=== PATIENT | female | born 1955 | race Caucasian/White ===

== ENCOUNTER 2025-01-31 16:46 | Emergency (ER) | payer MEDICARE, OTHER, SELFPAY ==
[2025-01-31] VITALS (7 sets, daily range): BP systolic 118–148; BP diastolic 65–83; PULSE 60–74; RESP 15–18; TEMP 36.6–36.8; O2SAT 93–100; BMI 46.4
--- NOTE | 2025-01-31 16:56 | ECG_ITS ---
Test Reason : syncope Blood Pressure : */* mmHG Vent. Rate : 58 BPM Atrial Rate : 58 BPM P-R Int : 196 ms QRS Dur : 92 ms QT Int : 456 ms P-R-T Axes : 31 -7 57 degrees QTcB Int : 447 ms Sinus bradycardia Cannot rule out Anterior infarct , age undetermined Abnormal ECG No previous ECGs available Referred By: Generic ED Physician Electronically Signed By: MARIELA SUMNER MD
[2025-01-31 17:18] LABS: MANUAL DIFF FLAG NO
[2025-01-31 17:18] LABS: Glucose, Whole Blood 137 mg/dL (60-115)
[2025-01-31 17:20] LABS: Hematocrit 40.6 % (37.0-47.0); Hemoglobin 13.6 g/dl (12.0-16.0); Imm Gran Abs Auto 0.04 X10*3/uL (0.00-0.03); Imm Gran Pct Auto 0.3 % (0.0-0.4); Lymphocytes Absolute Auto 3.2 X10*3/uL (1.2-4.9); Mean Corpuscular HGB Conc 33.5 g/dl (31.0-35.0); Mean Corpuscular Hemoglobin 29.3 pg (27.0-33.0); Mean Corpuscular Volume 87.5 fL (80.0-98.0); NRBC Abs Auto 0.000 X10*3/uL (0.0-0.012); NRBC Pct Auto 0.0 /100WBC (0.0-0.2); Platelet Count 243 X10*3/uL (160-400); Red Blood Count 4.64 X10*6/uL (4.20-5.50); White Blood Count 11.5 X10*3/uL (4.8-10.8)
--- NOTE | 2025-01-31 17:28 | ED.SYNCOPE ---
HPI - Syncope General Chief Complaint: Syncope Stated Complaint: Sycopal episode, +loc, - head strike Time Seen by Provider: 01/31/25 17:21 Source: patient and EMS Mode of arrival: EMS Limitations: no limitations History of Present Illness ED Provider: HPI narrative: 77-year-old woman with history of syncope in the past, was waiting outside for 45 minutes the store and a cold when she went into the warm space she said down and had a syncopal episode for minute no loss of bowel or bladder function, no seizures, she states that has had episodes of syncope and reaction to heat in the past, no chest pain or shortness of breath or palpitations prior to the event. Related Data Allergies Allergy/AdvReac Type Severity Reaction Status Date / Time No Known Allergies Allergy Verified 01/31/25 17:04 Physical Exam Exam: Exam: ?General: ??looks age appropriate no head trauma, ?PERRLA, EOMI, dry oral mucosa Neck: Supple, no LAD ?CV: RRR, no obvious murmurs appreciated ?Resp: ?No wheezing rales rhonchi no stridor moving air well Abd: ?Bowel sounds are present, no tenderness no rebound no rigidity MSK: FROM, strength 5/5 all extremities Skin: Warm, dry, intact, ?Neuro: ?Alert and oriented x3, moving upper and lower extremities symmetrically, no obvious facial asymmetry noted, cranial nerves 2-12 intact Vital Signs: Vital Signs: Last Vital Signs Temp 98 F 01/31/25 16:58 Pulse 64 01/31/25 16:58 Resp 18 01/31/25 16:58 BP 118/65 01/31/25 16:58 Pulse Ox 93 01/31/25 16:58 O2 Del Method Room Air 01/31/25 16:58 BMI result Body Mass Index 46.4 Medical Decision Making Medical Decision Making [facility] Narrative: 5:49 PM 01/31/2025 (Dr. Camacho Simental): Well-appearing, no trauma, no presyncopal events to suspect dysrhythmia, ACS, subarachnoid hemorrhage prior to syncope she has had syncopal episodes in the past, we will check cardiac enzymes, blood work for anemia, dehydration, electrolyte derangements, orthostatics anticipating discharge otherwise Differential Diagnosis Differential Diagnoses: The differential diagnosis associated with the presentation includes (ACS, PE, dysrhythmia, anemia, cardiac tamponade, AAA rupture, vasovagal syncope, orthostatic syncope, medication induced syncope) Lab Data MDM Lab Attestation statement: I reviewed the patient's lab results. 01/31/25 17:13 01/31/25 17:13 Labs: Lab Results 01/31/25 01/31/25 Range/Units 17:08 17:13 WBC 11.5 H (4.8-10.8) X10*3/uL RBC 4.64 (4.20-5.50) X10*6/uL Hgb 13.6 (12.0-16.0) g/dl Hct 40.6 (37.0-47.0) % MCV 87.5 (80.0-98.0) fL MCH 29.3 (27.0-33.0) pg MCHC 33.5 (31.0-35.0) g/dl RDW 12.9 (11.0-16.0) % Plt Count 243 (160-400) X10*3/uL MPV 11.0 (9.4-12.3) fL Immature Gran % (Auto) 0.3 (0.0-0.4) % Neut % (Auto) 65.4 (45-73) % Lymph % (Auto) 27.5 (20-40) % Churchill % (Auto) 5.5 (2-11) % Eos % (Auto) 1.0 (0-4) % Baso % (Auto) 0.3 (0-2) % Lymph # (Auto) 3.2 (1.2-4.9) X10*3/uL Churchill # (Auto) 0.6 (0.1-1.2) X10*3/uL Eos # (Auto) 0.1 (0.0-0.4) X10*3/uL Baso # (Auto) 0.0 (0.0-0.2) X10*3/uL Abs Immat Gran (auto) 0.04 H (0.00-0.03) X10*3/uL Absolute Neuts (auto) 7.5 (2.0-8.3) x10*3/uL Absolute Nucleated RBC 0.000 (0.0-0.012) X10*3/uL Nucleated RBC % (auto) 0.0 (0.0-0.2) /100WBC POC Glucose 137 H (60-115) mg/dL Independent Interpretation I performed an independent interpretation of an: EKG (58 beats per minute otherwise normal ECG without dysrhythmia, AV hamlet blocks or ST-T changes to suspect underlying ACS, my independent interpretation) Chronic Conditions Patient?s care impacted by: Hypertension Discharge Plan Discharge Clinical Impression: Vasovagal syncope Instructions: Syncope (ED) Additional Instructions: Make sure to stay well hydrated, follow up with the PCP, your physical exam, vital signs, workup included EKG cardiac enzymes reassuring Any other issues or concerns come back to the ER for re-evaluation
[2025-01-31 17:45] LABS: Alanine Aminotransferase 22 U/L (0-31); Albumin Level 4.1 g/dL (3.5-5.0); Alkaline Phosphatase 95 U/L (39-117); Anion Gap 12 (12-20); Aspartate Amino Transferase 24 U/L (5-31); Blood Urea Nitrogen 17 mg/dL (9-16); Calcium 8.8 mg/dL (8.4-10.2); Carbon Dioxide 28 mmol/L (22-29); Chloride 104 mmol/L (96-108); Creatinine Clr Calc Pharmacy 91.7; Estimated Glomerular Filt Rate > 60; Magnesium 1.6 mg/dL (1.6-2.6); Potassium 3.5 mmol/L (3.3-5.1); Sodium 140 mmol/L (135-145); Total Protein 7.0 g/dL (6.5-8.0)
[2025-01-31 17:54] LABS: Troponin-I High Sensitivity < 2.7 ng/L (<3.5-17.0)
--- NOTE | 2025-01-31 18:27 | PC.NURSE ---
Pt coming in reporting that she had a 1 minute syncopal episode pt reporting she was standing outside for 1+ hour, then went into a warm room and thinks that's what might have caused it. Pt noted that she has been nauseous but no other symptoms of SOB/CP/v/d. Pt noted while walking to the bathroom with this RN that she did not have any dizziness/or lightheadedness. IV placed IVF infusing, orthostatics completed and negative. Pt reporting she did eat both breakfast and some small lunch today. Call mccann within reach, awaiting further dispo at this time.
--- OUTSIDE RECORDS SUMMARY | 2025-02-01 02:24 | XMS_ITS | Clinical Summary ---
Author Organization [facility] Prior to 07/24/24 Address [address] [place] [address] Care Team Providers Care Powertrain Control Systems Engineer Name Role Phone Sofia Sims MD Primary Care Provider [phone] Allergies No known active allergies Medications Medication Sig Dispensed Refills Start Date End Date Status vitamin C (ASCORBIC ACID) 500 MG tablet Take 500 mg by mouth. 0 Active Cholecalciferol (VITAMIN D3) 25 MCG (1000 UT) CAPS Take 1 each by mouth. 0 Active gabapentin (NEURONTIN) 300 MG capsule TAKE 1 CAPSULE BY MOUTH EVERYDAY AT BEDTIME 0 11/03/2019 Active indapamide (LOZOL) 2.5 MG tablet TAKE 1 TABLET BY MOUTH EVERY DAY IN THE MORNING 0 11/02/2019 Active losartan (COZAAR) 100 MG tablet Take 100 mg by mouth daily. 0 11/02/2019 Active traMADol (ULTRAM) 50 MG tablet TK 1 T PO D 0 01/03/2020 Active albuterol 108 (90 Base) MCG/ACT inhaler Inhale 2 puffs into the lungs. 0 06/26/2020 Active fluticasone (FLONASE) 50 MCG/ACT nasal spray USE 1 PUFF INTO EACH NOSTRIL EVERY DAY 0 03/02/2021 Active ibuprofen 800 MG tablet Take 800 mg by mouth every 8 (eight) hours as needed. for pain 0 02/03/2021 Active indomethacin (INDOCIN) 50 MG capsule Take 50 mg by mouth. 0 04/15/2017 Active atorvastatin (LIPITOR) tablet 10 mg Take 1 tablet (10 mg total) by mouth every night at bedtime. 0 06/05/2021 Active LORazepam (ATIVAN) 1 MG tablet 0 01/30/2022 Active pregabalin (LYRICA) capsule 150 mg 0 01/30/2022 Active indapamide (LOZOL) 2.5 MG tablet Take 1 tablet (2.5 mg total) by mouth every night at bedtime. 0 06/20/2021 Active Active Problems Problem Noted Date Diagnosed Date Arthritis of knee, left 01/31/2022 Arthritis of knee, left 01/11/2020 Family History Medical History Relation Name Comments Hypertension Father Relation Name Status Comments Father Social History Tobacco Use Types Packs/Day Years Used Date Smoking Tobacco: Never Assessed Sex and Gender Information Value Date Recorded Sex Assigned at Not on file Gender Identity Not on file Sexual Orientation Not on file Job Start Date Occupation Industry Not on file Not on file Not on file Last Filed Vital Signs Vital Sign Reading Time Taken Comments Blood Pressure - - Pulse - - Temperature - - Respiratory Rate - - Oxygen Saturation - - Inhaled Oxygen Concentration - - Weight 108 kg (238 lb) 11/14/2020 11:13 AM EDT Height 154.9 cm (5' 1 ) 11/14/2020 11:13 AM EDT Body Mass Index 44.97 11/14/2020 11:13 AM EDT Plan of Treatment Health Maintenance Due Date Last Done Comments Hepatitis C Screening 1955 Depression Screening 1965 BMI Counseling 09/15/1971 Preventative Health Evaluation 09/15/1971 Colon Cancer Screening (Colonoscopy) 1998 Breast Cancer Screening (Mammogram) 09/15/2003 Shingrix-Zoster Vaccine (1 of 2) 09/15/2003 Fall Risk Assessment 2018 Osteoporosis Screening (DEXA Scan) 2018 DTap / Tdap / Td (2 - Td or Tdap) 04/09/2022 04/09/2012 COVID-19 Vaccine ( - 2024- season) 2024 12/18/2020, 04/18/2020, 03/28/2020 Influenza Vaccine (#1) 2024 2, 01/03/2021, 12/07/2019, Additional history exists RSV Adult > 60+ Yrs or (1 - 1-dose 75+ series) 2028 Pneumococcal Vaccine Completed 12/07/2019, 11/05/19 19 Hepatitis B Vaccines Aged Out No long er eligible based on patient's age to complete this topic RSV Ped < 20 months Aged Out No longe r eligible based on patient's age to complete this topic Care Teams Powertrain Control Systems Engineer Relationship Specialty Start Date End Date Sofia Sims MD PCP - General Internal Medicine 01/03/20
--- OUTSIDE RECORDS SUMMARY | 2025-02-01 02:24 | XMS_ITS | Encounter Summary ---
Author Organization [facility] Address [address] [place] [address] Care Team Providers Care Lpn Private Duty Name Role Phone Sofia Sims MD Primary Care Provider [phone] Encounter Details Date Type Department Care Team (Late st Contact Info) Description 08/22/2022 [facility] Encounter [facility] [address] [facility] [address] [place] [address] Valeria Motley, RANDAL [address] [place] [address] Social History Tobacco Use Types Packs/Day Years Used Date Smoking Tobacco: Never Alcohol Use Standard Drinks/Week Comments Not Currently 0 (1 standard drink = 0.6 oz pur e alcohol) Comments Unknown Sex and Gender Information Value Date Recorded Sex Assigned at Not on file Legal Sex Female 8:01 AM EST Gender Identity Not on file Sexual Orientation Not on file documented as of this encounter Plan of Treatment Upcoming Encounters Date Type Department Care Team (Late Contact Info) Description 02/28/2025 1:00 PM EST Office Visit [facility] at [address] [place] [phone] Segundo Puente MD [facility] [address]fe [address] [phone] Argelia Raymond APRN [address] [place] [phone] 03/02/2025 11:15 AM EST Follow Up [facility] at [address] [place] [id number] Segundo Puente MD [address] [place] [phone] documented as of this encounter Visit Diagnoses Not on filedocumented in this encounter Care Teams Lpn Private Duty Relationship Specialty Start Date End Date Sofia Sims MD PCP - General Internal Medicine 05/28/22 documented as of this encounter
--- OUTSIDE RECORDS SUMMARY | 2025-02-01 02:24 | XMS_ITS | Encounter Summary ---
Author Organization [facility] Address [address] [place] [address] Care Team Providers Care Line Installer Trolley Name Role Phone Sofia Sims MD Primary Care Provider [phone] Reason for Visit * Reason Comments Other Encounter Details Date Type Department Care Team (Late st Contact Info) Description 06/19/2022 Telephone Orthopa[facility]ics & Rehabilitation at [address] [facility] [place], [place] [phone] Dg Renee MD [address] [place] [address] Other Social History Tobacco Use Types Packs/Day Years Used Date Smoking Tobacco: Never Comments Unknown Sex and Gender Information Value Date Recorded Sex Assigned at Not on file Legal Sex Female 8:01 AM EST Gender Identity Not on file Sexual Orientation Not on file documented as of this encounter Miscellaneous Notes * Telephone Encounter - Lora Whitfield - 06/19/2022 12:27 PM EDT Gilda with [facility] would like to let Dr. Renee know the patient has her pre-op appointmentscheduled with her primary for clearance on 08/13/22. Any questions Gilda may be reached at [phone]. Thank you. documented in this encounter Plan of Treatment Upcoming Encounters Date Type Department Care Team (Late Contact Info) Description 02/28/2025 1:00 PM EST Office Visit [facility] [address] [place] [phone] Segundo Puente MD [address] [place] [phone] Argelia Raymond APRN [address] [place] [phone] 03/02/2025 11:15 AM EST Follow Up [facility] at [address] [place] [phone] Segundo Puente MD [address] [place] [phone] documented as of this encounter Visit Diagnoses Not on filedocumented in this encounter Care Teams Line Installer Trolley Relationship Specialty Start Date End Date Sofia Sims MD PCP - General Internal Medicine 05/28/22 documented as of this encounter
--- OUTSIDE RECORDS SUMMARY | 2025-02-01 02:24 | XMS_ITS | Continuity of Care Document ---
Author Organization [facility] Address [address] [place] [address] Phone Care Team Providers Care Broiler Supervisor Name Role Phone Sofia Sims MD Primary Care Provider [phone] Encounters Date Type Department Care Team Description 12/15/2024 10:23 AM EDT - 12/15/2024 11:59 PM EDT Hospital Encounter Radiology XRAY at [place] [phone] Segundo Puente MD Left knee pain, unspecified chronicity Discharge Disposition: Home or Self Care 12/15/2024 10:23 AM EDT - 12/15/2024 11:59 PM EDT Hospital Encounter Radiology XRAY at [address] [address] Segundo Puente MD Left knee pain, unspecified chronicity Discharge Disposition: Home or Self Care 12/15/2024 11:00 AM EDT Office Visit Orthopaedics & Rehabilitation at [address] [place], [place] [phone] Segundo Puente MD Left knee pain, unspecified chronicity (Primary Dx); Bilateral primary osteoarthritis of knee 12/03/2024 Transcribed Orders EXTERNAL REFERRAL SOURCE [address] [place] [id number] Anirudh Frazier PA Arthritis of left knee (Primary Dx) 08/19/2024 2:02 PM EDT - 08/19/2024 11:59 PM EDT Hospital Encounter [facility] Spine Center Xray [address] [place] [address] Dg Renee MD S/P lumbar fusion Discharge Disposition: Home or Self Care 08/19/2024 2:15 PM EDT Follow Up Spine Center at [address] [place] [address] Dg Renee MD S/P lumbar fusion (Primary Dx) 06/05/2024 Telephone Orthopaedics & Rehabilitation at [address] [place] [address] Dg Renee MD Appointment 10/30/2023 Telephone [facility]ics [facility] Rehabilitation at [address] [place] [address] Lsia Llanes, [facility] Forms 09/25/2023 Telephone Orthopa[facility]ics & Rehabilitation at [address] [place] [address] Lisa Llanes, TRUCK CRANE OPERATOR HELPER Forms 09/22/2023 1:29 PM EDT - 09/22/2023 11:59 PM EDT Hospital Encounter [facility] Spine Center Xray [address] [place] [address] Aure Harding APRN S/P lumbar fusion Discharge Disposition: Home or Self Care 09/22/2023 1:30 PM EDT Follow Up Spine Center at [address] [place] [address] Mehdi Mejia MD Eiser-Nolan, Megan, APRN S/P lumbar fusion (Primary Dx); Low back pain without sciatica, unspecified back pain laterality, unspecified chronicity 09/10/2023 Telephone [facility]ics & Rehabilitation at [address] [place] [address] Lisa Llanes, TRUCK CRANE OPERATOR HELPER Forms 03/17/2023 1:23 PM EST - 03/17/2023 11:59 PM EST Hospital Encounter [facility] Spine Center Xray [address] [place] [address] Umberto Hong PA S/P lumbar fusion Discharge Disposition: Home or Self Care 03/17/2023 1:30 PM EST Follow Up Spine Center at [address] [place] [address] Umberto Hong PA S/P lumbar fusion (Primary Dx) 03/13/2023 Office Visit [facility] [address] [place] [address] System, Provider Not In 02/06/2023 Telephone Orthopaedics & Rehabilitation at [address] [address] Dg Renee MD Letter for School/Work 12/30/2022 - 12/30/2022 11:59 PM EST Hospital Encounter [facility] FILE ROOM 20 [place] [address] System, Provider Not In Discharge Disposition: Home or Self Care 12/18/2022 Telephone Spine Center at [address] [place] [address] Umberto Hong PA Referral 12/16/2022 1:27 PM EDT - 12/16/2022 11:59 PM EDT Hospital Encounter [facility] Spine Center Xray [address] [place] [address] Umberto Hong PA S/P lumbar fusion Discharge Disposition: Home or Self Care 12/16/2022 1:30 PM EDT Follow Up Spine Center at [address] [place] [address] Umberto Hong PA S/P lumbar fusion (Primary Dx); Suspected deep vein thrombosis (DVT) 12/03/2022 Telephone [facility]ics & Rehabilitation at [address] [place] [address] Homer Cameron 11/12/2022 Telephone Orthopa[facility]ics & Rehabilitation at [address] [address] Dg Renee MD Referral 10/31/2022 1:02 PM EDT - 10/31/2022 11:59 PM EDT Hospital Encounter [facility] Spine Center Xray [address] [place] [address] Dg Renee MD S/P lumbar fusion Discharge Disposition: Home or Self Care 10/31/2022 1:00 PM EDT Follow Up Spine Center at [address] [place] [address] Dg Renee MD S/P lumbar fusion (Primary Dx) 10/11/2022 Telephone Orth[facility]ics & Rehabilitation at [address] [place] [address] Sunni Moura, JESSIE Follow-up 10/11/2022 Telephone [facility]ics [facility] Rehabilitation at [address] [place] [address] Dg Renee MD Other 10/10/2022 Orders Only Spine Center at [address] [place] [address] Irma Mello APRN S/P lumbar fusion (Primary Dx) 10/03/2022 Telephone [facility]ics [facility] Rehabilitation at [address] [place] [address] Yanna Arauz RN Other (3 week F/U call) 09/16/2022 1:20 PM EDT - 09/16/2022 11:59 PM EDT Hospital Encounter [facility] Spine Center Xray [address] [place] [address] Valeria Motley NP S/P lumbar fusion Discharge Disposition: Home or Self Care 09/16/2022 1:30 PM EDT Follow Up Spine Center at [address] [place] [address] Valeria Motley NP S/P lumbar fusion (Primary Dx) 09/02/2022 8:16 AM EDT - 09/08/2022 12:25 PM EDT Hospital Encounter [facility] [address] [address] Dg Renee MD Lumbar stenosis with neurogenic claudication; Acquired spondylolisthesis Discharge Disposition: Retirement Facility (STR/long-term) 09/02/2022 Travel 09/02/2022 10:15 AM EDT - 09/02/2022 3:47 PM EDT Surgery [facility] [address] [place] [address], [place] [address] Dg Renee MD O-arm, Lumbar 3-5 decompression and instrumented fusion with local autograft, graft supplement/allografft, possible bone morphogenetic protein, neuormonitoring. 09/02/2022 10:54 AM EDT Anesthesia Event [facility] [address] [place] [address], [place] [address] eGrald Vidales MD Cozza, Elizabeth Carolyne, COMMERCIAL FISHERMAN 08/30/2022 Telephone Spine Center at [address] [place], [place] [address] [place] [address] Annmarie Gonsales, RN Pre-operative Call 08/28/2022 Orders Only Anesthesia [address] [place] [address], [place] [address] Sunni Richards, COMMERCIAL FISHERMAN 08/28/2022 Travel 08/23/2022 Scanned Document Spine Center at [address] [place] [address] Provider, Historical 08/23/2022 Orders Only Spine Center at [address] [place] [address], [place] [address] Irma Mello, COMMERCIAL FISHERMAN Pre-op testing (Primary Dx) 08/23/2022 Telephone Spine Center at [address] [place] [address] Annmarie Gonsales, RN Follow-up 08/22/2022 [employer] Encounter Spine Center at [address] [place] [address] Valeria Motley, RANDAL 08/22/2022 Telephone Spine Center at [address] [place] [address] Annette Acuna, RN Results 08/21/2022 11:29 PM EDT - 08/21/2022 11:59 PM EDT Hospital Encounter [facility] [address] [place] [address] Dg Renee MD Lumbosacral spondylosis without myelopathy Discharge Disposition: Home or Self Care 08/21/2022 1:15 PM EDT Office Visit [facility] at [address] [place] [address] Dg Renee MD Lumbosacral spondylosis without myelopathy (Primary Dx) 07/30/2022 Telephone Spine Center at [address] [place] [address] Annmarie Gonsales, JESSIE Optimization Health Assessment 07/26/2022 Telephone Spine Center at [address] [place] [address] Annmarie Gonsales RN New Patient 06/21/2022 Telephone Spine Center at [address] [place] [address] Dg Renee MD Return Call 06/19/2022 Telephone Orthopaedics & Rehabilitation at 800 [facility] [address] [place] [address] Dg Renee MD Other 05/28/2022 Telephone Spine Center at [address] [place] [address] Dg Renee MD Appointment (PRE/OR/POST) 05/27/2022 Telephone Spine Center at [address] [place] [address] Dg Renee MD Return Call 05/27/2022 Telephone Spine Center at [address] [place] [address] Dg Renee MD Appointment (PRE/OR/POST) 05/25/2022 Telephone Spine Center at [address] [place] [address], [place] [address] Dg Renee MD Surgical Booking 05/23/2022 1:30 PM EDT - 05/23/2022 11:59 PM EDT Hospital Encounter File Room [address] [place] [address] Dg Renee MD Discharge Disposition: Home or Self Care 05/23/2022 1:00 PM EDT Follow Up Spine Center at [address] [place], [place] [address] [place] [address], [place] [address] Dg Renee MD Lumbosacral spondylosis without myelopathy (Primary Dx) 04/26/2022 9:31 AM EST - 04/26/2022 11:59 PM EST Hospital Encounter File Room [address] [place] [address] Dg Renee MD Discharge Disposition: Home or Self Care 04/22/2022 Telephone Spine Center at [address] [place], [place] [address] [place] [address], [place] [address] Valeria Motley NP Results 04/22/2022 Scanned Document [facility] [address] [facility] [address] [place], [place] [address] [place] [address], [place] [address] Provider, Historical 04/08/2022 Telephone Spine Center at [address] [facility] [address] [place] [address], [place] [address] Valeria Motley NP Other 03/25/2022 1:10 PM EST - 03/25/2022 11:59 PM EST Hospital Encounter [facility] Spine Center Xray [address] [place] [address] Valeria Motley NP Lumbar foraminal stenosis Discharge Disposition: Home or Self Care 03/25/2022 1:30 PM EST Follow Up [facility] at [address] [facility] [address] [place] [address], [place] [address] Valeria Motley, RANDAL Lumbar foraminal stenosis (Primary Dx) 01/22/2022 Telephone Spine Center at [address] [place] [address] Valeria Motley NP Advice Only 09/12/2020 Telephone Spine Center at [address] [place] [address] Valeria Motley NP Medication Refill 08/31/2020 Telephone Spine Center at [address] [place] [address] Valeria Motley NP Advice Only 06/02/2020 Orders Only Spine Center at [address] [place] [address] Yuki Bucio PA Chronic bilateral low back pain with bilateral sciatica (Primary Dx) 06/02/2020 Telephone [facility] SCHEDULING [address] [place] [address] Valeria Motley NP Referral (Physical Therapy) 03/07/2020 10:15 AM EST Telephone Spine Center at [address] [place] [address] Jose R Bird MD Antonucci, Ashley, NP Appointment 02/07/2020 Scanned Document Spine Center at [address] [place] [address] Theodore Johnson MD 02/07/2020 Transcribed Orders [facility] SCHEDULING [address] [place] [address] Jose R Bird MD Lumbar radiculopathy (Primary Dx); Foraminal stenosis of lumbar region Allergies No known active allergies Medications losartan (COZAAR) 100 mg tablet Take 1 tablet (100 mg total) by mouth every morning. 3 Active TURMERIC ORAL Take 2 capsules by mouth every morning. Active glucosamine-cho ndroitin 500-400 mg Cap Take 2 each by mouth every morning. Active pregabalin (LYRICA) 150 mg capsule Take 1 capsule (150 mg total) by mouth every 12 (twelve) hours. 3 Active ascorbic acid, vitamin C, (VITAMIN C) 500 mg tablet Take 1 tablet (500 mg total) by mouth every morning. Active cholecalciferol , vitamin D3, 25 mcg (1,000 unit) capsule Take 1 capsule (1,000 Units total) by mouth every morning. Active naftifine (NAFTIN) 2 % Crea cream 1 APPLICATION TO THE AFFECTED TOENAIL EXTERNALLY ONCE A DAY 3 Active indapamide (LOZOL) 2.5 mg tablet Take 1 tablet (2.5 mg total) by mouth every morning. 3 Active senna (SENOKOT) 8.6 mg tablet Take 2 tablets (17.2 mg total) by mouth 2 (two) times daily. 30 tablet 11 3 Active Active Problems Problem Noted Date Diagnosed Date Lumbar stenosis with neurogenic claudication 11/2022 Immunizations Immunization Administration Dates Next Due Influenza, high-dose, split virus, trivalent,(65Yr+),injectable, preservative free 12/18/2021 Social History Smoking Status as of 02/01/2025 Tobacco Use Types Packs/Day Years Used Date Smoking Tobacco: Never Assessed Overall Financial Resource Strain (CARDIA) Answe r Date Recorded How hard is it for you to pa y for the very basics like food, housing, medical care, and heating? Not hard at all 09/02/2022 PHQ-2 Answer Date Recorded PHQ-2 Total Score 0 03/17/2023 Hunger Vital Sign Answer Date Recorded Within the past 12 months, y ou worried that your food would run out before you got the money to buy more. Never true 09/03/19 23 Within the past 12 months, t he food you bought just didn't last and you didn't have money to get more. Never true 09/02/2022 PRAPARE - Transportation Answer Date Re corded In the past 12 months, has l ack of transportation kept you from medical appointments or from getting medications? No 08/24 In the past 12 months, has l ack of transportation kept you from meetings, work, or from getting things needed for daily living? No 09/02/2022 Housing Stability Answer Date Recorded What is your living situation today? I have a [facility] place to live 09/02/2022 Housing Stability Not on file 09/02/2022 Interpersonal Safety Answer Date Record ed Is there anyone in your life that is hurting or threatening you in anyway? Not on file 03/17/2023 Physical Indicators of Abuse No evidence of phys ical abuse 03/17/2023 Sex and Gender Information Value Date Recorded Sex Assigned at Not on file Legal Sex Female 8:01 AM EST Gender Identity Not on file Sexual Orientation Not on file Last Filed Vital Signs Vital Sign Reading Time Taken Comments Blood Pressure 134/75 08/19/2024 1:56 PM EDT Pulse 83 08/19/2024 1:56 PM EDT Temperature 36.6 C (97.9 F) 09/08/2022 8:20 AM EDT Respiratory Rate 18 09/08/2022 8:20 AM EDT Oxygen Saturation 96% 09/08/2022 8:20 AM EDT Inhaled Oxygen Concentration - - Weight 110 kg (242 lb 9.6 oz) 12/15/2024 11:51 A M EDT Height 154.9 cm (5' 1 ) 12/15/2024 11:51 AM EDT Body Mass Index 45.84 12/15/2024 11:51 AM EDT Plan of Treatment Upcoming Encounters Date Type Department Care Team (Late st Contact Info) Description 02/28/2025 1:00 PM EST Office Visit Digestive Diseases at [address] [place] [phone] Segundo Puente MD [address] [phone] Argelia Raymond APRN [address] [place] [phone] 03/02/2025 11:15 AM EST Follow Up Orthopaedics & Rehabilitation at [address] [place] [phone] Segundo Puente MD [address] [place] [address] Medical Devices Implanted Type Area Sld Teacher Device Identifier Shelf Expiration Date Model / Serial / Lot Graft Infs Lrg 2 - [id number] Implanted:Qt y: 1 on 09/02/2022 by Dg Renee MD at [address] Implant Lumbar: Spine Lumbar [employer] [id number] 03/27/2024 [id number] / / [id number] Graft Mstrgrf 10cc - [id number] Implanted:Qt y: 1 on 09/02/2022 by Dg Renee MD at [address] Implant Lumbar: Spine Lumbar [employer] [id number] 05/24/2025 [id number] / / [id number] Graft Mstrgrf 20cc - [id number] Implanted:Qt y: 1 on 09/02/2022 by Dg Renee MD at [address] Implant Lumbar: Spine Lumbar [employer] [id number] 05/24/2025 [id number] / / [id number] Screw Solera 6.5 X 40 Mas - [id number] Implanted:Qt y: 4 on 09/02/2022 by Dg Renee MD at [address] Implant Lumbar: Spine Lumbar [employer] [id number] / / Scr 5.5 Mas 7.5x40 Cc - [id number] Implanted:Qt y: 2 on 09/02/2022 by Dg Renee MD at [address] Implant Lumbar: Spine Lumbar [employer] [id number] / / Greg 5.5 Ti Cp4 Ns Curv 70mm - [id number] Implanted:Qt y: 2 on 09/02/2022 by Dg Renee MD at [address] Implant Lumbar: Spine Lumbar [employer] [id number] / / Screw Set Solera 5.5 Ti Brkoff - [id number] Implanted:Qt y: 6 on 09/02/2022 by Dg Renee MD at [place] [id number] [facility] Implant Lumbar: Spine Lumbar [employer] [id number] / / Procedures Procedure Name Priority Date/Time Associated Diagnosis Comments XR KNEE BILATERAL AP LATERAL AXIAL AND TUNNEL Routine 12/15/2024 11:29 AM EDT Left knee pain, unspecified chronicity XR PELVIS 1 OR 2 VIEWS Routine 12/15/2024 11:29 AM EDT Left knee pain, unspecified chronicity XR LUMBAR SPINE AP AND LATERAL Routine 08/19/2024 2:08 PM EDT S/P lumbar fusion XR LUMBAR SPINE AP AND LATERAL Routine 09/22/2023 1:34 PM EDT S/P lumbar fusion XR LUMBAR SPINE AP AND LATERAL Routine 03/17/2023 1:39 PM EST S/P lumbar fusion [facility] LUMBAR SPINE Routine 12/30/2022 12:00 AM EST XR LUMBAR SPINE AP AND LATERAL Routine 12/16/2022 1:34 PM EDT S/P lumbar fusion XR LUMBAR SPINE AP AND LATERAL Routine 10/31/2022 1:10 PM EDT S/P lumbar fusion XR LUMBAR SPINE AP AND LATERAL Routine 09/16/2022 1:31 PM EDT S/P lumbar fusion BASIC METABOLIC PANEL Routine 09/06/2022 5:12 AM EDT BASIC METABOLIC PANEL Routine 09/06/2022 5:12 AM EDT CBC WITHOUT DIFFERENTIAL Routine 09/06/2022 5:12 AM EDT EKG Routine 09/04/2022 11:30 AM EDT CBC AND DIFFERENTIAL Routine 09/03/2022 5:12 AM EDT BASIC METABOLIC PANEL Routine 09/03/2022 5:12 AM EDT CBC WITH AUTO DIFFERENTIAL Routine 09/03/2022 5:12 AM EDT BASIC METABOLIC PANEL Routine 09/03/2022 5:12 AM EDT XR LUMBAR SPINE AP AND LATERAL Within 1 hour (STAT) 09/02/2022 4:41 PM EDT BASIC METABOLIC PANEL STAT 09/02/2022 3:52 PM EDT CBC AND DIFFERENTIAL STAT 09/02/2022 3:52 PM EDT BASIC METABOLIC PANEL STAT 09/02/2022 3:52 PM EDT CBC WITH AUTO DIFFERENTIAL STAT 09/02/2022 3:52 PM EDT NR FL MORE THAN 1 HOUR EXAM Routine 09/02/2022 3:13 PM EDT AUTOGRAFT SPINE SURGERY LOCAL FROM SAME INCISION High Risk 09/02/2022 10:42 AM EDT Spinal stenosis, lumbar region, with neurogenic claudication Acquired spondylolisthesis Special Needs FIRST CASE- 7:30 AM STARTLENGTH OF SURGERY- 3.5 HOURSANESTHESIA- GENERALPOSITION- PRONEOR TABLE- OSI/JACKSONFLUOROSCOPYCELL SAVERNEUROMONITORINGVENDOR/IMPLANT- [employer]- SOLERA- JAEL ALCANTARA-NOTIFIED 08/30-LM THORACOLUMBAR IN ALLOGRAFT FOR SPINE SURGERY ONLY MORSELIZED High Risk 09/02/2022 10:42 AM EDT Spinal stenosis, lumbar region, with neurogenic claudication Acquired spondylolisthesis Special Needs FIRST CASE- 7:30 AM STARTLENGTH OF SURGERY- 3.5 HOURSANESTHESIA- GENERALPOSITION- PRONEOR TABLE- OSI/JACKSONFLUOROSCOPYCELL SAVERNEUROMONITORINGVENDOR/IMPLANT- [employer]- SOLERA- JAEL ALCANTARA-NOTIFIED 08/30-LM THORACOLUMBAR POSTERIOR SEGMENTAL INSTRUMENTATION 3-6 VRT SEG High Risk 09/02/2022 10:42 AM EDT Spinal stenosis, lumbar region, with neurogenic claudication Acquired spondylolisthesis Special Needs FIRST CASE- 7:30 AM STARTLENGTH OF SURGERY- 3.5 HOURSANESTHESIA- GENERALPOSITION- PRONEOR TABLE- OSI/JACKSONFLUOROSCOPYCELL SAVERNEUROMONITORINGVENDOR/IMPLANT- [employer]- SOLERA- JAEL ALCANTARA-NOTIFIED 08/30-LM THORACOLUMBAR IN ARTHRODESIS PST/PSTLAT TQ 1NTRSPC EA ADDL NTRSPC High Risk 09/02/2022 10:42 AM EDT Spinal stenosis, lumbar region, with neurogenic claudication Acquired spondylolisthesis Special Needs FIRST CASE- 7:30 AM STARTLENGTH OF SURGERY- 3.5 HOURSANESTHESIA- GENERALPOSITION- PRONEOR TABLE- OSI/JACKSONFLUOROSCOPYCELL SAVERNEUROMONITORINGVENDOR/IMPLANT- [employer]- SOLERA- JAEL ALCANTARA-NOTIFIED 08/30-LM THORACOLUMBAR IN ARTHRODESIS POSTERIOR/PSTLAT TQ 1NTRSPC LUMBAR High Risk 09/02/2022 10:42 AM EDT Spinal stenosis, lumbar region, with neurogenic claudication Acquired spondylolisthesis Special Needs FIRST CASE- 7:30 AM STARTLENGTH OF SURGERY- 3.5 HOURSANESTHESIA- GENERALPOSITION- PRONEOR TABLE- OSI/JACKSONFLUOROSCOPYCELL SAVERNEUROMONITORINGVENDOR/IMPLANT- [employer]- SOLERA- JAEL ALCANTARA-NOTIFIED 08/30-LM THORACOLUMBAR IN MORENO FACETECTOMY&FORAMOT 1 VRT SGM EA ADDL SGM High Risk 09/02/2022 10:42 AM EDT Spinal stenosis, lumbar region, with neurogenic claudication Acquired spondylolisthesis Special Needs FIRST CASE- 7:30 AM STARTLENGTH OF SURGERY- 3.5 HOURSANESTHESIA- GENERALPOSITION- PRONEOR TABLE- OSI/JACKSONFLUOROSCOPYCELL SAVERNEUROMONITORINGVENDOR/IMPLANT- [employer]- SOLERA- JAEL ALCANTARA-NOTIFIED 08/30-LM THORACOLUMBAR LAMINEC/FACETECT/FOR SANTOS,LUMBAR 1 SEG High Risk 09/02/2022 10:42 AM EDT Spinal stenosis, lumbar region, with neurogenic claudication Acquired spondylolisthesis Special Needs FIRST CASE- 7:30 AM STARTLENGTH OF SURGERY- 3.5 HOURSANESTHESIA- GENERALPOSITION- PRONEOR TABLE- OSI/JACKSONFLUOROSCOPYCELL SAVERNEUROMONITORINGVENDOR/IMPLANT- [employer]- SOLERA- JAEL ALCANTARA-NOTIFIED 08/30-LM THORACOLUMBAR IN STEREOTACTIC COMP ASSIST PROC,SPINAL High Risk 09/02/2022 10:42 AM EDT Spinal stenosis, lumbar region, with neurogenic claudication Acquired spondylolisthesis Special Needs FIRST CASE- 7:30 AM STARTLENGTH OF SURGERY- 3.5 HOURSANESTHESIA- GENERALPOSITION- PRONEOR TABLE- OSI/JACKSONFLUOROSCOPYCELL SAVERNEUROMONITORINGVENDOR/IMPLANT- [employer]- SOLERA- JAEL ALCANTARA-NOTIFIED 08/30-LM THORACOLUMBAR TYPE AND RH RECHECK ([facility]) STAT 09/02/2022 8:38 AM EDT TYPE AND SCREEN ([facility]) Urgent 09/02/2022 8:38 AM EDT PARTIAL THROMBOPLASTIN TIME ([facility] Q [facility]) Urgent 09/02/2022 8:38 AM EDT PROTIME AND INR Urgent 09/02/2022 8:38 AM EDT MSSA / MRSA SCREEN BY PCR ([facility]) Routine 08/21/2022 7:10 PM EDT Lumbosacral spondylosis without myelopathy EKG Routine 08/13/2022 LAB SCAN Routine 08/12/2022 CT RESULT SCAN Routine 04/22/2022 CT LUMBAR SPINE WO IV CONTRAST Routine 04/22/[address] LUMBAR SPINE Routine 04/17/2022 2:08 PM EST XR LUMBAR SPINE AP LATERAL FLEXION AND EXTENSION Routine 03/25/2022 1:25 PM EST Lumbar foraminal stenosis [facility] LUMBAR SPINE Routine 11/14/2021 9:34 AM EDT MRI RESULT SCAN 11/14/2021 12:00 AM EDT XRAY RESULT SCAN 09/19/2020 12:00 AM EDT Results * XR Knee Bilateral AP Lateral Axial and Tunnel ([facility]) (12/15/2024 11:29 AM EDT) Anatomical Region Laterality Modality Thigh, Knee, Leg, Ortho Knee Dig ital Radiography 12/15/2024 11:3 6 AM EDT Narrative 12/15/2024 11:37 AM EDT Study: XR KNEE BILATERAL AP LATERAL AXIAL AND TUNNEL. Indication: PAIN Prior: None. Findings: Left greater than right knee osteoarthritic changes are seen with joint space narrowing, subchondral sclerosis and osteophyte formation. There is no acute fracture or dislocation. No erosions are seen. Impression: Left greater than right knee osteoarthritis. Classification Kellgren and Rohan classification system for osteoarthritis. grade 0 (none): definite absence of x-ray changes of osteoarthritis grade 1 (doubtful): doubtful joint space narrowing and possible osteophytic lipping grade 2 (minimal): definite osteophytes and possible joint space narrowing grade 3 (moderate): moderate multiple osteophytes, definite narrowing of joint space, some sclerosis and possible deformity of bone ends grade 4 (severe): large osteophytes, marked narrowing of joint space, severe sclerosis and definite deformity of bone ends Reported and signed by: Umberto Abrams MD [facility] Procedure Note Umberto Abrams MD - 12/15/2024 Study: XR KNEE BILATERAL AP LATERAL AXIAL AND TUNNEL. Indication: PAIN Prior: None. Findings: Left greater than right knee osteoarthritic changes are seen with jointspace narrowing, subchondral sclerosis and osteophyte formation. There isno acute fracture or dislocation. No erosions are seen. Impression: Left greater than right knee osteoarthritis. Classification Kellgren and Rohan classification system for osteoarthritis. grade 0 (none): definite absence of x-ray changes of osteoarthritis grade 1 (doubtful): doubtful joint space narrowing and possibleosteophytic lipping grade 2 (minimal): definite osteophytes and possible joint spacenarrowing grade 3 (moderate): moderate multiple osteophytes, definite narrowing ofjoint space, some sclerosis and possible deformity of bone ends grade 4 (severe): large osteophytes, marked narrowing of joint space,severe sclerosis and definite deformity of bone ends Reported and signed by: Umberto Abrams MD [facility] Segundo Puente MD [facility] ORDER [place]YTON Final Result * XR Pelvis 1 or 2 Views (12/15/2024 11:29 AM EDT) Anatomical Region Laterality Modality Pelvis, Ortho Pelvis, RCC Abdomen/Pelvis Digital Radiography 12/15/2024 11:3 7 AM EDT Narrative 12/15/2024 11:42 AM EDT Study: XR PELVIS 1 OR 2 VIEWS. Indication: PAIN Prior: None. Findings: Spinal fusion involving 3 levels of the lower lumbar spine is seen. SI joint osteophytosis is present. Early hip osteotomy changes are seen. There is no acute fracture or dislocation. Impression: Early bilateral hip osteoarthritis. No acute abnormalities. Reported and signed by: Umberto Abrams MD [facility] Procedure Note Umberto Abrams MD - 12/15/2024 Study: XR PELVIS 1 OR 2 VIEWS. Indication: PAIN Prior: None. Findings: Spinal fusion involving 3 levels of the lower lumbar spine is seen. SIjoint osteophytosis is present. Early hip osteotomy changes are seen.There is no acute fracture or dislocation. Impression: Early bilateral hip osteoarthritis. No acute abnormalities. Reported and signed by: Umberto Abrams MD [facility] Segundo Puente MD [facility] ORDER PEYTON Final Result * XR Lumbar Spine AP and Lateral (08/19/2024 2:08 PM EDT) Only the most recent of7 resultswithin the time period is included. Anatomical Region Laterality Modality L-spine, Spine, Ortho L-spine Di gital Radiography 08/19/2024 5:50 PM EDT Impressions 08/19/2024 5:52 PM EDT Postsurgical changes, as described above. [facility] Radiology Notify System: Routine. Reported and signed by: Aubrey Alcantara MD [facility] Narrative 08/19/2024 5:52 PM EDT XR LUMBAR SPINE AP AND LATERAL CLINICAL INDICATION: pain COMPARISON:XR LUMBAR SPINE AP AND LATERAL 2023-09-22 FINDINGS: The patient is status post posterior fusion spanning L3-L5, transfixed by hardware. Alignment of hardware is similar. There is no evidence of complication. There is grade 1 anterolisthesis of L3 on L4, and L4 on L5, similar to prior exam. Vertebral body height appears maintained. Variable degrees of degenerative spondylosis is noted. Procedure Note Aubrey Alcantara MD - 08/19/2024 XR LUMBAR SPINE AP AND LATERAL CLINICAL INDICATION: pain COMPARISON:XR LUMBAR SPINE AP AND LATERAL 2023-09-22 FINDINGS: The patient is status post posterior fusion spanning L3-L5, transfixed byhardware. Alignment of hardware is similar. There is no evidence of complication. There is grade 1 anterolisthesis of L3 on L4, and L4 on L5, similar toprior exam. Vertebral body height appears maintained. Variable degrees of degenerative spondylosis is noted. IMPRESSION: Postsurgical changes, as described above. [facility] Radiology Notify System: Routine. Reported and signed by: Aubrey Alcantara MD [facility] Dg Renee MD [facility] DIAGNOSTIC IMAGING ORDLiliana REGALADO Final Result * [facility] MRI Lumbar Spine (12/30/2022 12:00 AM EST) Only the most recent of2 resultswithin the time period is included. Narrative RAD4 - 03/13/2023 1:05 AM EST DISCLAIMER This procedure captures images only. There is no report. us Provider Not In System IMG [facility] NON REP ORDERABLE S Final Result RAD4 * (ABNORMAL) Basic metabolic panel (09/06/2022 5:12 AM EDT) Only the most recent of3 resultswithin the time period is included. Sodium 140 136 - 144 mmol/L 09/06/2022 6:16 AM [facility] Potassium 4.0 3.3 - 5.3 mmol/L 09/06/2022 6:16 AM [facility] Chloride 100 98 - 107 mmol/L 09/06/2022 6:16 AM [facility] CO2 28 20 - 30 mmol/L 09/06/2022 6:16 AM [facility] Anion Gap 12 7 - 17 09/06/2022 6:16 AM [facility] Glucose 99 70 - 100 mg/dL 09/06/2022 6:16 AM [facility] BUN 18 8 - 23 mg/dL 09/06/2022 6:16 AM [facility] Creatinine 0.70 0.40 - 1.30 mg/dL 09/06/2022 6:16 AM [facility] Calcium 9.0 8.8 - 10.2 mg/dL 09/06/2022 6:16 AM [facility] BUN/Creatinine Ratio 25.7(H) 8.0 - 23.0 09/06/2022 6:16 AM [facility] eGFR (Creatinine) >60 >=60 mL/min/1. 73m2 09/06/2022 6:16 AM [facility] Comment: Values < 60 mL/min/1.73 m2 may indicate CKD if present for more than three months AND creatinine is at steady state. The eGFR provides a rough estimate of kidney function. On 10/09/21 all [facility] Clinical Labs and Epic began using a [id number]-[id number] formula for estimating GFR called CKD-EPI Creatinine 2020. This equation reports eGFR based on creatinine, patient age, clinical sex, and is standardized to a body surface area of 1.73 m2. For the same creatinine, this new race-free eGFR will be lower than prior reported Black eGFR results and higher than prior Non-Black eGFR results. For further guidance, please refer to the CKD: Adult Afloat Cryptologic Manager Signature pathway. Blood ARM NEC / Unknown Venipuncture / Unknown 09/06/2022 5:12 AM EDT 09/06/2022 5:14 AM EDT Sabra GONSALVES LAB BLOOD ORDERABLES Final Result [facility] [place] [address], [facility] [phone] * (ABNORMAL) CBC without differential (09/06/2022 5:12 AM EDT) WBC 15.1(H) 4.0 - 11.0 x1000/ L 09/06/2022 5:28 AM EDT [facility] RBC 4.06 4.00 - 6.00 M/ L 09/06/2022 5:28 AM EDT [facility] Hemoglobin 12.0 11.7 - 15.5 g/dL 09/06/2022 5:28 AM EDT [facility] Hematocrit 35.30 35.00 - 45.00 % 09/06/2022 5:28 AM EDT [facility] MCV 86.9 80.0 - 100.0 fL 09/06/2022 5:28 AM EDT [facility] MCH 29.6 27.0 - 33.0 pg 09/06/2022 5:28 AM EDT [facility] MCHC 34.0 31.0 - 36.0 g/dL 09/06/2022 5:28 AM EDT [facility] RDW-CV 13.2 11.0 - 15.0 % 09/06/2022 5:28 AM EDT [facility] Platelets 251 150 - 420 x1000/ L 09/06/2022 5:28 AM EDT [facility] MPV 12.1(H) 8.0 - 12.0 fL 09/06/2022 5:28 AM EDT [facility] ANC(Abs Neutrophil Count) 10.41(H) 2.00 - 7.60 x 1000/ L 09/06/2022 5:28 AM EDT [facility] Blood ARM NEC / Unknown Venipuncture / Unknown 09/06/2022 5:12 AM EDT 09/06/2022 5:14 AM EDT Sabra GONSALVES LAB BLOOD ORDERABLES Final Result Performing Organization Address [facility] de Phone Number [facility] [address] [place] [address] * EKG (09/04/2022 11:30 AM EDT) Only the most recent of2 resultswithin the time period is included. [facility] Heart Rate 76 bpm [facility] EKG QRS Interval 98 ms [facility] EKG QT Interval 380 ms [facility] EKG QTC Interval 428 ms SRC EKG P [place] 35 deg SRC EKG QRS [place] 3 deg SRC EKG T Wave [place] 31 deg SRC EKG P-R Interval 178 msec SRC EKG SEVERITY Borderline ECG severity [facility]C EKG Comment::Sinus rhythm::Low v oltage, precordial leads::Non-specific STT wave changes:Electronically Signed On 09-04-2022 16:19:39 EDT by Rohan Spears MD 09/04/2022 11:3 0 AM EDT Valeria Morris PA ECG ORDERABLES Final Re sult Performing Organization Address [facility] de Phone Number [facility] EKG * (ABNORMAL) CBC auto differential (09/03/2022 5:12 AM EDT) Only the most recent of2 resultswithin the time period is included. [facility] WBC 12.0(H) 4.0 - 11.0 x1000/ L 09/03/2022 5:43 AM EDT [facility] RBC 3.90(L) 4.00 - 6.00 M/ L 09/03/2022 5:43 AM EDT [facility] Hemoglobin 11.5(L) 11.7 - 15.5 g/dL 09/03/2022 5:43 AM EDT [facility] Hematocrit 33.70(L) 35.00 - 45.00 % 09/03/2022 5:43 AM EDT [facility] MCV 86.4 80.0 - 100.0 fL 09/03/2022 5:43 AM EDT [facility] MCH 29.5 27.0 - 33.0 pg 09/03/2022 5:43 AM EDT [facility] MCHC 34.1 31.0 - 36.0 g/dL 09/03/2022 5:43 AM EDT [facility] RDW-CV 13.2 11.0 - 15.0 % 09/03/2022 5:43 AM EDT [facility] Platelets 176 150 - 420 x1000/ L 09/03/2022 5:43 AM EDT [facility] MPV 11.8 8.0 - 12.0 fL 09/03/2022 5:43 AM EDT [facility] Neutrophils 68.1 39.0 - 72.0 % 09/03/2022 5:43 AM EDT [facility] Lymphocytes 22.0 17.0 - 50.0 % 09/03/2022 5:43 AM EDT [facility] Monocytes 8.5 4.0 - 12.0 % 09/03/2022 5:43 AM EDT [facility] Eosinophils 0.9 0.0 - 5.0 % 09/03/2022 5:43 AM EDT [facility] Basophil 0.2 0.0 - 1.4 % 09/03/2022 5:43 AM EDT [facility] Immature Granulocytes 0.3 0.0 - 1.0 % 09/03/2022 5:43 AM EDT [facility] nRBC 0.0 0.0 - 1.0 % 09/03/2022 5:43 AM EDT [facility] ANC(Abs Neutrophil Count) 8.17(H) 2.00 - 7.60 x 1000/ L 09/03/2022 5:43 AM EDT [facility] Absolute Lymphocyte Count 2.63 0.60 - 3.70 x 1000/ L 09/03/2022 5:43 AM EDT [facility] Monocyte Absolute Count 1.02(H) 0.00 - 1.00 x 1000/ L 09/03/2022 5:43 AM EDT [facility] Eosinophil Absolute Count 0.11 0.00 - 1.00 x 1000/ L 09/03/2022 5:43 AM EDT [facility] Basophil Absolute Count 0.02 0.00 - 1.00 x 1000/ L 09/03/2022 5:43 AM EDT [facility] Absolute Immature Granulocyte Count 0.03 0.00 - 0.30 x 1000/ L 09/03/2022 5:43 AM EDT [facility] Absolute nRBC 0.00 0.00 - 1.00 x 1000/ L 09/03/2022 5:43 AM EDT [facility] Blood ARM NEC / Unknown Venipuncture / Unknown 09/03/2022 5:12 AM EDT 09/03/2022 5:31 AM EDT Dg Renee MD LAB BLOOD ORDERABLES Final Result Performing Organization Address City/[facility]/ZIP Co de Phone Number [facility] [address] [place] [address] * NR [place] More Than 1 Hour Exam (09/02/2022 3:13 PM EDT) Narrative RAD4 - 09/02/2022 3:13 PM EDT DISCLAIMER This procedure captures images only. There is no report. Dg Renee MD IMG FLUOROSCOPY ORDERABLES Final Result Performing Organization Address City/[facility]/ZIP Co de Phone Number RAD4 * Partial thromboplastin time (BH GH LMW Q YH) (09/02/2022 8:38 AM EDT) Pathologist [facility] PTT 25.9 22.5 - 32.0 seconds 09/02/2022 9:23 AM EDT [facility] Comment:THERAPEUTIC RANGE: 4 0-80 seconds Blood Venipuncture / Unknown 09/02/2022 8:38 AM EDT 09/02/2022 8:45 AM EDT Sunni Richards APRN LAB BLOOD ORDERABL ES Final Result Performing Organization Address City/[facility]/ZIP Co de Phone Number [facility] [address] [place] [address], [facility] [phone] * Type and Rh recheck (BH GH LMW YH) (09/02/2022 8:38 AM EDT) [facility] ABORH Recheck Interpretation AB POS 09/02/2022 9:45 AM EDT [facility] Blood Venipuncture / Unknown 09/02/2022 8:38 AM EDT 09/02/2022 8:45 AM EDT Sunni Richards APRN BLOOD BANK TEST OR DERABLES Final Result Performing Organization Address [facility] Co de Phone Number [facility] [address] [place] [address], [facility] [phone] * Protime and INR (09/02/2022 8:38 AM EDT) [facility] Prothrombin Time 10.3 9.5 - 12.1 seconds 09/02/2022 9:23 AM EDT [facility] INR 0.97 0.89 - 1.15 09/02/2022 9:23 AM EDT [facility] Comment: Monitor Coumadin with INR ONLY, not PT. THERAPEUTIC RANGE: 2.0-3.0 Blood Venipuncture / Unknown 09/02/2022 8:38 AM EDT 09/02/2022 8:45 AM EDT Sunni Richards APRN LAB BLOOD ORDERABL ES Final Result Performing Organization Address City/[facility]/ZIP Co de Phone Number [facility] [address] [place] [address] * Type and screen (BH GH LMW YH) (09/02/2022 8:38 AM EDT) Pathologist [facility] ABO Grouping AB 09/02/2022 9:45 AM EDT [facility] Rh Type POS 09/02/2022 9:45 AM EDT [facility] Antibody Screen NEG 09/02/2022 9:45 AM EDT [facility] Blood Venipuncture / Unknown 09/02/2022 8:38 AM EDT 09/02/2022 8:45 AM EDT Sunni Richards APRN BLOOD BANK TEST OR DERABLES Final Result Performing Organization Address City/[facility] de Phone Number [facility] [address] [place] [address] * (ABNORMAL) Staph. aureus screen by PCR(Pre Op) (LMW Y) (08/21/2022 7:10 PM EDT) Pathologist [facility] MRSA Nares PCR Negative Negative 08/22/2022 1:24 AM EDT [facility] DEPART[facility] OF LABORATORY MEDICINE S. aureus Nares PCR Positive(A) Negative 08/22/2022 1:24 AM EDT [facility] DEPARTMENT OF LABORATORY MEDICINE Culture SPECIMEN FROM NASAL SINUS / Unknown Collection / Unknown 08/21/2022 7:10 PM EDT 08/21/2022 11:29 PM EDT Narrative [facility] DEPARTMENT OF LABORATORY MEDICINE - 08/22/2022 1:24 AM EDT S. aureus detected, but MRSA not detected. Presumptive colonization with MSSA S.aureus Screen by PCR performed using the [employer] GeneXpert The analytical performance characteristics of this test have been determined and it has been validated for clinical use by the [facility] Clinical Microbiology Laboratory. This test has not been cleared or approved by the U.S. Food and Drug Administration. This laboratory is certified under the Clinical Laboratory Improvement Amendments of 1988 (CLIA) as qualified to perform high complexity clinical laboratory testing. Dg Renee MD MICROBIOLOGY - GENERAL BRAXTONLiliana REGALADO Final Result Performing Organization Address [facility] de Phone Number [facility] DEPARTMENT OF LABORATORY MEDICINE [address] [place] [address] [phone] * Lab Scan (08/12/2022) Historical Provider LAB BLOOD ORDERABLES Final R esult * CT Result Scan (04/22/2022) Result [facility] Provider IMG SCAN REPORTS Final Resul t * CT Lumbar Spine wo IV Contrast (04/22/2022) Anatomical Region Laterality Modality L-spine, Spine, Ortho L-spine Co mputed Tomography Result [facility] Historical Provider IMG CT ORDERABLES Final Resu lt * [facility] CT Lumbar Spine (04/17/2022 2:08 PM EST) Narrative RAD4 - 05/23/2022 2:08 PM EDT DISCLAIMER This procedure captures images only. There is no report. Result [facility] Dg Renee MD IMG [facility] NON REP ORDERABLES Final Result Performing Organization Address [facility] Co de Phone Number RAD4 * XR Lumbar Spine AP Lateral Flex/Ext (03/25/2022 1:25 PM EST) Anatomical Region Laterality Modality L-spine, Spine, Ortho L-spine Di gital Radiography 03/25/2022 3:46 PM EST Impressions 03/25/2022 3:49 PM EST Degenerative spondylosis, as described above. Reported And Signed By: Aubrey Alcantara MD [facility] Narrative 03/25/2022 3:49 PM EST XR LUMBAR SPINE AP LATERAL FLEXION AND EXTENSION CLINICAL INDICATION: lumbar stenosis COMPARISON: None. FINDINGS: There are 5 lumbar-type vertebral bodies. Vertebral body height appears maintained. There is mild levoconvex curvature centered at L2-3. There is grade 1 anterolisthesis of L3 on L4 and grade 1/2 anterolisthesis of L4 on L5. There is no abnormal motion on flexion-extension views. Advanced disc space narrowing, end plate sclerosis and osteophytosis is present throughout the lumbar spine. There is facet arthrosis throughout the lumbar spine. Degenerative changes are noted along the sacroiliac joints. Procedure Note Aubrey Alcantara MD - 03/25/2022 XR LUMBAR SPINE AP LATERAL FLEXION AND EXTENSION CLINICAL INDICATION: lumbar stenosis COMPARISON: None. FINDINGS: There are 5 lumbar-type vertebral bodies. Vertebral body height appears maintained. There is mild levoconvex curvature centered at L2-3. There is grade 1anterolisthesis of L3 on L4 and grade 1/2 anterolisthesis of L4 on L5. There is no abnormal motion on flexion-extension views. Advanced disc space narrowing, end plate sclerosis and osteophytosis ispresent throughout the lumbar spine. There is facet arthrosis throughout the lumbar spine. Degenerative changes are noted along the sacroiliac joints. IMPRESSION: Degenerative spondylosis, as described above. Reported And Signed By: Aubrey Alcantara MD [facility] Valeria Motley NP IMG DIAGNOSTIC IMAGING ORDER PEYTON Final Result * MRI RESULT SCAN (11/14/2021 12:00 AM EDT) 11/14/2021 us Provider Not In System IMG SCAN REPORTS Final Re sult * XRAY RESULT SCAN (09/19/2020 12:00 AM EDT) 09/19/2020 us Provider Not In System IMG SCAN REPORTS Final Re sult Visit Diagnoses Diagnosis Start Date Lumbar radiculopathy Thoracic or lumbosacral neuritis or radiculitis, unspecified 02/07/2020 Foraminal stenosis of lumbar region Spinal stenosis, lumbar region, without neurogenic claudication 02/07/2020 Chronic bilateral low back pain with bilateral sciatica 03/07/2020 Chronic bilateral low back pain with bilateral sciatica 06/02/2020 Lumbar foraminal stenosis Spinal stenosis, lumbar region, without neurogenic claudication 03/25/2022 Lumbar foraminal stenosis Spinal stenosis, lumbar region, without neurogenic claudication 03/25/2022 Lumbosacral spondylosis without myelopathy 05/23/2022 Lumbosacral spondylosis without myelopathy 07/30/2022 Lumbar foraminal stenosis Spinal stenosis, lumbar region, without neurogenic claudication 07/30/2022 Lumbosacral spondylosis without myelopathy 08/21/2022 Lumbosacral spondylosis without myelopathy 08/21/2022 Pre-op testing Preoperative examination, unspecified 08/23/2022 Spinal stenosis, lumbar region, with neurogenic claudication 09/02/2022 Acquired spondylolisthesis 09/02/2022 Lumbar stenosis with neurogenic claudication Spinal stenosis, lumbar region, with neurogenic claudication 09/02/2022 Acquired spondylolisthesis 09/02/2022 S/P lumbar fusion Arthrodesis status 09/16/2022 S/P lumbar fusion Arthrodesis status 09/16/2022 S/P lumbar fusion Arthrodesis status 10/10/2022 S/P lumbar fusion Arthrodesis status 10/31/2022 S/P lumbar fusion Arthrodesis status 10/31/2022 S/P lumbar fusion Arthrodesis status 12/16/2022 S/P lumbar fusion Arthrodesis status 12/16/2022 Suspected deep vein thrombosis (DVT) 12/16/2022 S/P lumbar fusion Arthrodesis status 03/17/2023 S/P lumbar fusion Arthrodesis status 03/17/2023 S/P lumbar fusion Arthrodesis status 09/22/2023 S/P lumbar fusion Arthrodesis status 09/22/2023 Low back pain without sciatica, unspecified back pain laterality, unspecified chronicity 09/22/2023 S/P lumbar fusion Arthrodesis status 08/19/2024 S/P lumbar fusion Arthrodesis status 08/19/2024 Arthritis of left knee Unspecified arthropathy, lower leg 12/03/2024 Left knee pain, unspecified chronicity 12/15/2024 Left knee pain, unspecified chronicity 12/15/2024 Left knee pain, unspecified chronicity 12/15/2024 Bilateral primary osteoarthritis of knee 12/15/2024 Lumbar stenosis with neurogenic claudication Spinal stenosis, lumbar region, with neurogenic claudication 09/02/2022 Care Teams Broiler Supervisor Relationship Specialty Start Date End Date Sofia Sims MD PCP - General Internal Medicine 05/28/22
--- OUTSIDE RECORDS SUMMARY | 2025-02-01 02:24 | XMS_ITS | Encounter Summary ---
Author Organization [facility] Address [address] [place] [address] Care Team Providers Care Account Resolution Analyst Name Role Phone Sofia Sims MD Primary Care Provider [phone] Encounter Details Date Type Department Care Team (Late st Contact Info) Description 02/07/2020 Scanned Document [facility] [address] [place] [address] Theodore Johnson MD [address] [place] [address] Dr [address] [place] [address] [phone] Social History Tobacco Use Types Packs/Day Years Used Date Smoking Tobacco: Never Assessed Comments Unknown Sex and Gender Information Value Date Recorded Sex Assigned at Not on file Legal Sex Female 8:01 AM EST Gender Identity Not on file Sexual Orientation Not on file documented as of this encounter Plan of Treatment Upcoming Encounters Date Type Department Care Team (Late Contact Info) Description 02/28/2025 1:00 PM EST Office Visit [facility] at [address] [address] Segundo Puente MD [address] [place] [phone] Argelia Raymond APRN [address] [place] [address] [phone] 03/02/2025 11:15 AM EST Follow Up [facility] at [address] [address] Segundo Puente MD [address] [place] [address] [phone] documented as of this encounter Visit Diagnoses Not on filedocumented in this encounter Care Teams Account Resolution Analyst Relationship Specialty Start Date End Date Sofia Sims MD PCP - General Internal Medicine 05/28/22 documented as of this encounter
--- OUTSIDE RECORDS SUMMARY | 2025-02-01 02:24 | XMS_ITS ---
Author Name [facility] Organization Unknown History of Medication Use Medication Directions Dispensed Refills Start Date End Date Status acetaminophen (TYLENOL) 325 mg tablet Take 2 tablets (650 mg total) by mouth every 6 (six) hours for 10 days. 3 023 active ondansetron (ZOFRAN-ODT) 4 mg disintegrating tablet Take 1 tablet (4 mg total) by mouth every 6 (six) hours as needed for up to 7 days. 3 023 active senna (SENOKOT) 8.6 mg tablet Take 2 tablets (17.2 mg total) by mouth 2 (two) times daily. 3 active bisacodyL (DULCOLAX) 5 mg EC tablet Take 1 tablet (5 mg total) by mouth daily as needed for constipation (2nd line PRN; if no bowel movement within 12 hours). 3 023 active bisacodyL (DULCOLAX) suppository 10 mg 10 mg, Rectal, DAILY PRN, constipation, Starting on Fri09/06/22 at 1415Common Side Effects: Diarrhea, discomfort, cramps. 3 023 aborted glycerin adult 1 suppository 1 suppository, Rectal, DAILY PRN, constipation, 4th line PRN; if no bowel movement in 12 hours, Starting on Fri09/05/22 at 2241 3 023 aborted lactulose (CHRONULAC) solution 20 g 20 g, Oral, 2 TIMES DAILY PRN, 3rd line PRN; if no bowel movement in 12 hours, Starting on Fri09/05/22 at 2241 3 023 aborted metoclopramide HCl (REGLAN) tablet 10 mg [Order 1 Start] Name: metoclopramide HCl (REGLAN) tablet 10 mg Signed Summary: 10 mg, Oral, EVERY 6 HOURS PRN, nausea or vomiting, Starting on Fri09/05/22 at 2242Second line therapy. Give only if inadequate response to first line therapy after 15 minutes with IV, 30 minutes with oral, or 60 minute 3 023 aborted ondansetron (ZOFRAN-ODT) disintegrating tablet 4 mg [Order 1 Start] Name: ondansetron (ZOFRAN-ODT) disintegrating tablet 4 mg Signed Summary: 4 mg, Oral, EVERY 6 HOURS PRN, nausea or vomiting, Starting on Fri09/05/22 at 2242First line therapy. Common Side Effects: Lightheaded, stomach upset, headache. [Order 1 End] [Order 2 Start] Name: ondansetro 3 023 aborted senna (SENOKOT) tablet 17.2 mg 17.2 mg (2 tablet), Oral, 2 Times Daily Scheduled, First dose (after last modification) on Fri09/06/22 at 0900, Post-OpCommon Side Effects: Diarrhea, discomfort, cramps. 3 023 aborted potassium chloride SA (K-DUR,KLOR-CON M) 24 hr tablet 40 mEq 40 mEq, Oral, ONCE, On Fri09/05/22 at 2245, For 1 doseCommon Side Effects: Stomach upset, diarrhea. 3 023 completed aluminum-magnesium hydroxide-simethicone (MAALOX) 200-200-20 mg/5 mL suspension Take 30 mLs by mouth 4 (four) times daily before meals & at bedtime as needed for indigestion. 3 023 active hydroCHLOROthiazide (HYDRODIURIL) tablet 37.5 mg 37.5 mg, Oral, Daily, First dose on Fri09/04/22 at 0900 3 023 aborted acetaminophen (TYLENOL) tablet 975 mg 975 mg, Oral, Every 6 Hours Scheduled, First dose on Fri09/03/22 at 0000, Post-OpFirst dose now or start 6 hours after last dose of acetaminophen. 3 07/16/2 023 aborted heparin (porcine) injection 7,500 Units 7,500 Units, Subcutaneous, Every 8 Hours Scheduled, First dose (after last modification) on Fri09/03/22 at 0600, Post-OpFor VTE Prophylaxis, administer dose as SC. For Heparin Infusion Protocol bolus, administer dose as IV Push undiluted over 1 minute. RECOMMENDED monitoring includes: Bleeding. Com 3 aborted senna (SENOKOT) tablet 8.6 mg 8.6 mg (1 tablet), Oral, ONCE, On Fri09/05/22 at 2245, For 1 doseCommon Side Effects: Diarrhea, discomfort, cramps. 3 completed ceFAZolin (ANCEF) 1 g in sodium chloride 0.9% PF 10 mL (100 mg/mL) 1 g (rounded from 1,000 mg), IV Push, ONCE, On Fri09/02/22 at 2300, For 1 doseThis drug may be automatically dose-adjusted by the Pharmacist according to the patient's renal function as approved by the [facility] Formulary Integration Committee (FIC). Irritant; Common Side Effects: Stomach upset, skin r 3 completed oxyCODONE (ROXICODONE) 5 mg Immediate Release tablet Take 1 tablet (5 mg total) by mouth every 4 (four) hours as needed for pain for up to 7 days. 3 active diazePAM (VALIUM) tablet 5 mg 5 mg, Oral, 3 TIMES DAILY PRN, muscle spasms, Starting on Fri09/02/22 at 1802, Post-OpCommon Side Effects: Confusion, dizziness, drowsiness, mood changes. 3 aborted magnesium hydroxide (MILK OF MAGNESIA) 400 mg/5 mL suspension 30 mL 30 mL, Oral, DAILY PRN, constipation, 1st line PRN, Starting on Fri09/05/22 at 2241Use caution in patients with CrCl < 30 mL/min; may cause hypermagnesemia Common Side Effects: Chalky taste, stomach upset. 3 023 aborted polyethylene glycol (MIRALAX) 17 gram packet Take 1 packet (17 g total) by mouth 2 (two) times daily. Mix in 8 ounces of water, juice, soda, coffee or tea prior to taking. 3 023 active pregabalin (LYRICA) capsule 150 mg 150 mg, Oral, EVERY 12 HOURS, First dose on Fri09/02/22 at 1015OP SIG:Take 1 capsule (150 mg total) by mouth every 12 (twelve) hours. 3 023 aborted oxyCODONE (ROXICODONE) Immediate Release tablet 10 mg 10 mg, Oral, EVERY 3 HOURS PRN, severe Pain (PIS 7-10), Starting on Fri09/02/22 at 1802, For 7 days, Post-OpCommon Side Effects: Confusion, nausea, vomiting, drowsiness, constipation, breathing problems. 3 023 aborted sodium chloride 0.9% infusion 100 mL/hr, Intravenous, CONTINUOUS, Starting on Fri09/02/22 at 1815, Post-Op 3 023 aborted fentaNYL PF (SUBLIMAZE) injection 50 mcg 50 mcg, IV Push, EVERY 5 MIN PRN, moderate Pain (PIS 4-6), for adult patients may also give for higher pain score per patient preference, May repeat every 5 minutes x 5 doses (Maximum dose 300 mcg in 25 minutes), Starting on Fri09/02/22 at 1210, For 6 doses, PACUFirst-line therapy 3 023 aborted pregabalin (LYRICA) 150 mg capsule Take 1 capsule (150 mg total) by mouth every 12 (twelve) hours. 3 active losartan (COZAAR) tablet 100 mg 100 mg, Oral, Every Morning, First dose on Fri09/03/22 at 0700Hold for SBP < 90 mm Hg Common Side Effects: Hypotension, dizziness.OP SIG:Take 1 tablet (100 mg total) by mouth every morning. 3 023 aborted naftifine (NAFTIN) 2 % Crea cream 1 APPLICATION TO THE AFFECTED TOENAIL EXTERNALLY ONCE A DAY 3 active traMADoL (ULTRAM) 50 mg tablet Take 1 tablet (50 mg total) by mouth daily as needed. 3 023 aborted indapamide (LOZOL) 2.5 mg tablet Take 1 tablet (2.5 mg total) by mouth every morning. 3 active ascorbic acid, vitamin C, (VITAMIN C) 500 mg tablet Take 1 tablet (500 mg total) by mouth every morning. active cholecalciferol, vitamin D3, 25 mcg (1,000 unit) capsule Take 1 capsule (1,000 Units total) by mouth every morning. active glucosamine-chondroitin 500-400 mg Cap Take 2 each by mouth every morning. active TURMERIC ORAL Take 2 capsules by mouth every morning. active Problems Problem Status Onset Date Problem Type Date of Resolution Source Acquired spondylolisthesis active EncounterDiagnosisAct Y [facility] Lumbar stenosis with neurogenic claudication active 2022-09-02 ProblemAct [facility] Immunizations Vaccine Date Source Lot Number Status Influenza, high dose seasonal 12/18/2021 [facility] [id number] completed Encounters Encounter Type Encounter Reason Primary Diagnosis Location Date Inpatient Spinal stenosis, lumbar region, with neurogenic claudication [facility] 09/02/2022 Care Team Organization Name Specialty Phone Email Start Date End Da te [facility] ACO 10/13/2024 [facility] Sofia Garcia Primary Care 02/05/2023 4 [facility] SOFIA GARCIA Primary Care 09/02/2022 024 [facility] Sofia Garcia Primary Care 09/02/2022 09/02/2022 [facility] Padmini Finney Primary Care 01/01/202209/24
--- OUTSIDE RECORDS SUMMARY | 2025-02-01 02:24 | XMS_ITS | Encounter Summary ---
Author Organization [facility] Address [address] [place] [address] Care Team Providers Care Huller Operator Name Role Phone Sofia Sims MD Primary Care Provider [phone] Encounter Details Date Type Department Care Team (Late Contact Info) Description 08/23/2022 Scanned Document [facility] at [address] [facility] 6th [place] [address] Provider, Historical . Social History Tobacco Use Types Packs/Day Years [...] PM EST Office Visit [facility] at [address] [place] [phone] Segundo Puente MD [facility] Edu Wolfe [address] [phone] Argelia Raymond APRN [address] [place] [phone] 03/02/2025 11:15 AM EST Follow Up [facility] at [address] [place] [phone] Segundo Puente MD [address] [place] [address] [address] [place] [phone] documented as of this encounter Procedures Procedure Name Priority Date/Time Associated Diagnosis Comments EKG Routine 08/13/2022 LAB SCAN Routine 08/12/2022 documented in this encounter Results * EKG (08/13/2022) us Historical Provider ECG ORDERABLES Final Result * Lab Scan (08/12/2022) us Historical Provider LAB BLOOD ORDERABLES Final R esult documented in this encounter Visit Diagnoses Not on filedocumented in this encounter Care Teams Huller Operator Relationship Specialty Start Date End Date Sofia Sims MD PCP - General Internal Medicine 05/28/22 documented as of this encounter
--- OUTSIDE RECORDS SUMMARY | 2025-02-01 02:24 | XMS_ITS | Clinical Summary ---
Author Organization [facility] [address] [place] [address] [place] [phone] Phone Care Team Providers Care Yarn Examiner Skeins Name Role Phone Sofia Sims MD Primary Care Provider [phone] Allergies No known active allergies Medications ascorbic acid (VITAMIN C) 500 mg CR capsule Take 500 mg by mouth daily Active diclofenac (VOLTAREN) 1 % topical gel Apply 1 g topically 4 times daily as needed (apply to right elbow). 4 Active miconazole (MICATIN) 2 % cream Apply to skin 2 times daily for 4 weeks 4 Active pregabalin (LYRICA) 150 mg capsule TAKE 1 CAPSULE BY MOUTH TWICE A DAY 3 Active vitamin E acid succinate (vitamin E succinate) 268 mg (400 unit) tablet Take 500 mg by mouth. Active cholecalciferol (VITAMIN D-3) 25 mcg (1,000 unit) capsule Take 1 Each by mouth daily. Active losartan (COZAAR) 100 mg tablet Take 1 tablet (100 mg total) by mouth at bedtime. 90 tablet 1 5 Active atorvastatin (LIPITOR) 10 mg tablet Take 1 tablet (10 mg total) by mouth at bedtime. 90 tablet 1 5 Active indapamide (LOZOL) 2.5 mg tablet Take 1 tablet (2.5 mg total) by mouth at bedtime. 90 tablet 5 Active ibuprofen (ADVIL,MOTRIN) 800 mg tablet TAKE 1 TABLET BY MOUTH 2 TIMES A WEEK 24 tablet 5 Active albuterol HFA (PROAIR HFA ; PROVENTIL HFA ; VENTOLIN HFA) 90 mcg/actuation inhaler Inhale 2 puffs by mouth every 4 (four) hours if needed for wheezing. 18 g 5 Active traMADoL (ULTRAM) 50 mg tabletIndication s:Spinal stenosis of lumbar region, unspecified whether neurogenic claudication present Take 1 tablet (50 mg total) by mouth 1 (one) time each day if needed for severe pain. for pain Max Daily Amount: 50 mg 28 tablet 5 Active albuterol HFA (PROAIR HFA ; PROVENTIL HFA ; VENTOLIN HFA) 90 mcg/actuation inhaler Inhale 2 puffs by mouth every 4 (four) hours if needed for wheezing. 18 g 1 5 01/20/20 25 Discontin ued(Reord er) traMADoL (ULTRAM) 50 mg tabletIndication s:Spinal stenosis of lumbar region, unspecified whether neurogenic claudication present Take 1 tablet (50 mg total) by mouth 1 (one) time each day if needed for severe pain. for pain Max Daily Amount: 50 mg 28 tablet 5 01/20/20 25 Discontin ued(Reord er) Active Problems Problem Noted Date Diagnosed Date Prediabetes 10/13/2024 Hallux rigidus, right foot 01/08/2024 Morbid obesity with BMI of 45.0-49.9, adult 07/2023 Assessment & Plan (10/13/2024 10:23 AM EDT): Insomnia 01/12/2023 PAT (obstructive sleep apnea) 09/09/2022 Overview (07/13/2024): UNTREATED (07/13/24) Lumbar spinal stenosis 08/20/2017 Overview (11/30/2023): L3-4 L3-5 decompression and fusion 09/15 Assessment & Plan (10/13/2024 10:23 AM EDT): Gout 04/13/2017 Carpal tunnel syndrome 03/14/2005 Closed fracture of ankle 03/09/2005 Overview (03/03/2024): 8/94 Hypercholesterolemia 03/09/2005 Overview (01/13/2025): ASCVD 11.1% (Sep 2020) Assessment & Plan (10/13/2024 10:23 AM EDT): Hypertension 03/09/2005 Assessment & Plan (10/13/2024 10:23 AM EDT): Onychomycosis 03/09/2005 Sciatica 03/09/2005 Encounters Date Type Department Care Team Description 01/13/2025 11:00 AM EST Office Visit Adult Medicine [address] [phone] Padmini Finney PA Hypercholesterolemia (Primary Dx); Prediabetes; Onychomycosis; Primary hypertension; Spinal stenosis of lumbar region, unspecified whether neurogenic claudication present; PAT (obstructive sleep apnea); Morbid obesity with BMI of 45.0-49.9, adult ([facility] V24, [facility] V28); Cardiac murmur; Refused pneumococcal vaccine 12/22/2024 12:15 PM EDT Lab Draw [address] [phone] Encounter for long-term (current) use of high-risk medication from Last 3 Months Immunizations Immunization Administration Dates Next Due Influenza Quadravalent, MDCK , 0.5ml, preservative free (Flucelvax) 6mo and older 12/11/2017 Influenza Quadrivalent, 0.5m l, preservative free (Fluarix; FluLaval; Fluzone) ages 6mo and older (Afluria) 3yo and older 11/28/2015 Influenza trivalent, 0.5mL ( Fluad) 65yo and older 01/13/2025,01/08/2024 Influenza trivalent, 0.5mL ( Fluzone High-dose) 65yo and older 01/09/2023,12/18/2021,01/03/2021,12/06,01/03/2019 Influenza trivalent, 0.5mL, preservative free (Fluarix; FluLaval; Fluzone) ages 6mo and older (Afluria) 3 years and older 11/27/2016,11/18/2014 Pneumococcal conjugate 13 va lent (Prevnar 13, PCV13) 2mo and older 11/04/2018 Pneumococcal polysaccharide 23 valent (Pneumovax 23) 2yo and older 12/07/2019 Td Tetanus diptheria (Tdvax) 7yo and older 06/19/2022 Td Tetanus diptheria, preser vative free (Tenivac) 7yo and older 06/19/2022 Td, Unspecified 07/13/2003 Tdap Tetanus diptheria acell ular pertussis (Boostrix; Adacel) 7yo and older 04/09/2012 Zoster Live 11/03/2014 Surgical History Surgery Date Site/Laterality Comments FLEXIBLE SIGMOIDOSCOPY 08/01/2008 Normal to 60 cm COLONOSCOPY 03/14/2022 normal/some resistance in sigmoid due to adhesions from IR DECOMPR DISC SGL/MULT LVL LUMBAR lumbar decompression L3-5 SCREENING MAMMOGRAM 03/17/2024 Bilateral Medical History Medical History Date Comments Pure hypercholesterolemia 03/09/2005 Unspecified closed fracture of ankle 03/09/2005 : Sciatica 03/09/2005 Carpal tunnel syndrome 03/14/2005 Essential hypertension, benign 03/09/2005 Lumbar spinal stenosis 08/20/2017 L3-4 PAT (obstructive sleep apnea) 09/09/2022 Onychomycosis 03/09/2005 Hypercholesterolemia 03/09/2005 ASCVD 11.1% (Sep 2020); declining statin (05/04/21) Gout 04/13/2017 Prediabetes 10/13/2024 Family History Medical History Relation Name Comments Other: stomach cancer Father Other: old age Mother 86 Breast cancer Neg Hx Relation Name Status Comments Father Mother Social History Tobacco Use Types Packs/Day Years Used Date Smoking Tobacco: Former Smokeless Tobacco: Never Tobacco Cessation:Counseling Given: Not Answered Alcohol Use Standard Drinks/Week Comments No 0 (1 standard drink = 0.6 oz pur e alcohol) Housing Instability Answer Date Recorde d Are you worried that in the next 2 months you may not have stable housing? No 10/13/2024 Food Access & Nutrition Answer Date Rec orded Do you have access to a vari ety of food including fruits and vegetables? Yes 10/13/2024 Access to Healthcare Answer Date Record ed Within the last 3 months, ho w many times did you visit the emergency department for your medical care? 0 10/13/2024 Health Literacy Answer Date Recorded How often do you need to hav e someone help you when you read instructions, pamphlets, or other written material from your doctor or pharmacy? Never 10/13/2024 Caregiver: How often do you need to have someone help you when you read instructions, pamphlets, or other written material from your doctor or pharmacy? Not on file 10/13/2024 Financial Risk Answer Date Recorded How hard is it for you to pa y for the very basics like food, housing, medical care, and air conditioning / heating? Not very hard 10/13/2024 Transportation Answer Date Recorded Has the lack of transportati on kept you from meetings, work, or from getting things needed for daily living? No Has the lack of transportati on kept you from medical appointments or from getting medications? No 10/13/2024 Social Isolation Answer Date Recorded How often do you feel lonely or isolated from th ose around you? Never 10/13/2024 Food Risk Answer Date Recorded Within the past 12 months we worried whether our food would run out before we got money to buy more. Never true 10/13/2024 Within the past 12 months th e food we bought just didn't last and we didn't have money to get more. Never true 10/13/2024 Dependent Care Answer Date Recorded Do you need help finding or paying for care for your loved ones. For example, child nutrition manager or elderly care for an older adult? No 10/13/2024 Education Answer Date Recorded Do you think completing more education or training, like finishing a GED, going to college, or learning a trade, would be helpful for you? N/A 10/13/2024 Employment and Income Answer Date Recor ded During the last four weeks, have you been actively looking for work? No 10/13/2024 Living Situation Answer Date Recorded What is your living situation? Unrecognized valu e 10/13/2024 Comments No Sex and Gender Information Value Date Recorded Sex Assigned at Not on file Legal Sex Female 2:18 AM EST Gender Identity Not on file Sexual Orientation Not on file Obstetrics History Para Term AB IAB SAB Ectopic Multiple Livin g Live Births 2 2 2 2 Date Outcome GA Total Labor Labor/2nd/3rd Weight Sex Type Anes PTL Sania A1 A5 Name Clin Term Term Last Filed Vital Signs Vital Sign Reading Time Taken Comments Blood Pressure 148/84 01/13/2025 11:17 AM EST a Pulse 79 01/13/2025 11:17 AM EST Temperature 36.9 C (98.5 F) 01/13/2025 11:16 AM EST Respiratory Rate 15 01/13/2025 11:16 AM EST Oxygen Saturation 98% 01/13/2025 11:16 AM EST Inhaled Oxygen Concentration - - Weight 109 kg (241 lb 4.8 oz) 01/13/2025 11:16 A M EST Height 154.9 cm (5' 1 ) 01/13/2025 11:16 AM EST Body Mass Index 45.59 01/13/2025 11:16 AM EST Plan of Treatment Upcoming Encounters Date Type Department Care Team (Late st Contact Info) Description 02/08/2025 11:00 AM EST Office Visit Adult Medicine [address] [phone] Padmini Finney PA [address] [place], [place] 04/01/2025 1:30 PM EST Ancillary Procedure [facility] [address] [facility] [address] [place] [id number] 04/20/2025 12:45 PM EST Office Visit [address] [phone] Sofia Sims MD [address] [place] [address] Health Maintenance Due Date Last Done Comments Cervical Cancer Screening: HPV 1974 RSV Immunization Adult Patients (1 - Risk 50-74 years 1-dose series) 09/15/2003 Zoster Vaccines (2 of 3) 12/29/2014 11/03/2014 COVID-19 Vaccine ( season) 2024 12/18/2020, 04/18/2020, 03/28/2020 Hypertension/CHF/CAD Annual BMP Blood Test 10/11/2025 10/11/2024, 07/04/2023, 07/04/2023, Additional history exists Falls Risk Assessment 10/13/2025 10/13/2024 , 10/08/2023, 07/08/2023 Medicare Annual Wellness Visit 10/13/2025 10/13/2024 Social Influencers of Health Screening 10/13/2025 10/13/2024 Breast Cancer Screening 03/17/2026 03/17/19, 03/05/2023, 02/06/2022, Additional history exists Osteoporosis Screening (Bone Density Screening) 01/27/2029 02/06/2022, 01/27/2019 Cholesterol Screening (Lipid Panel) 10/11/2029 10/11/2024, 10/08/2023, 10/08/2023, Additional history exists Colorectal Cancer Screening: Colonoscopy 03/15/2032 03/14/2022 DTaP,Tdap,and Td Vaccines (5 - Td or Tdap) 06/19/2032 06/19/2022, 06/19/2022, 04/09/2012, Additional history exists Hepatitis C Screening Completed 03/01/2017 Pneumococcal Vaccine: 50+ Years Completed 12/07/2019, 11/04/2018 Depression Screening Completed 01/13/2025, 10/08/19 Influenza Vaccine Completed 01/13/2025, , 01/09/2023, Additional history exists HIB Vaccines Aged Out No longer eligi ble based on patient's age to complete this topic HPV Vaccines Aged Out No longer eligi ble based on patient's age to complete this topic Hepatitis A Vaccines Aged Out No long er eligible based on patient's age to complete this topic Hepatitis B Vaccines Aged Out No long er eligible based on patient's age to complete this topic IPV Vaccines Aged Out No longer eligi ble based on patient's age to complete this topic MMR Vaccines Aged Out No longer eligi ble based on patient's age to complete this topic Meningococcal ACWY Vaccine Aged Out N o longer eligible based on patient's age to complete this topic Meningococcal B Vaccine Aged Out No l onger eligible based on patient's age to complete this topic RSV Immunization Patients Under 20 months Aged Out No longer eligible based on patient's age to complete this topic Varicella Vaccines Aged Out No longer eligible based on patient's age to complete this topic Procedures Procedure Name Priority Date/Time Associated Diagnosis Comments DRUG ABUSE SCREEN EXPANDED WITH REFLEX CONFIRMATION, URINE Routine 12/22/2024 12:22 PM EDT Encounter for long-term (current) use of high-risk medication COMPREHENSIVE METABOLIC PANEL Routine 10/11/2024 11:01 AM EDT Spinal stenosis of lumbar region, unspecified whether neurogenic claudication present Hypercholesterolemia Primary hypertension Morbid obesity with BMI of 45.0-49.9, adult (CMS/HCC V24, CMS/[facility] V28) PAT (obstructive sleep apnea) LIPID PANEL WITH REFLEX TO DIRECT LDL Routine 10/11/2024 11:01 AM EDT Spinal stenosis of lumbar region, unspecified whether neurogenic claudication present Hypercholesterolemia Primary hypertension Morbid obesity with BMI of 45.0-49.9, adult (CMS/HCC V24, CMS/HCC V28) PAT (obstructive sleep apnea) MG MAMMO DIGITAL SCREENING W SKINNY BILAT Routine 03/17/2024 11:12 AM EST Encounter for screening mammogram for breast cancer DEPRESSION SCREENING Routine 10/08/2023 FALLS RISK ASSESSMENT Routine 07/08/2023 COLONOSCOPY Routine 03/14/2022 DXA BONE DENSITY STUDY 1+ SITS AXIAL SKEL Routine 02/06/2022 10:31 AM EST Family history of osteoporosis Asymptomatic menopausal state HEPATITIS C SCREENING Routine 03/01/2017 from Last 3 Months or Most Recently Relevant to Health Maintenance Results * Drug abuse screen expanded with reflex confirmation, urine (12/22/2024 12:22 PM EDT) Amphetamine Screen, Ur Negative Negative LAB CHEMISTRY METHOD 12/22/2024 8:25 PM EDT [facility] Comment:Certain OTC medicati ons containing ephedrine, phenylephrine, pseudoephedrine and phenylpropanolamine can cause false positive results. Barbiturate Screen, Ur Negative Negative LAB CHEMISTRY METHOD 12/22/2024 8:25 PM EDT [facility] Benzodiazepine Screen, Ur Negative Negative LAB CHEMISTRY METHOD 12/22/2024 8:25 PM EDT [facility] Cocaine Screen, Ur Negative Negative LAB CHEMISTRY METHOD 12/22/2024 8:25 PM EDT [facility] Opiate Screen, Ur Negative Negative LAB CHEMISTRY METHOD 12/22/2024 8:25 PM [facility] Cannabinoid (THC) Screen, Ur Negative Negative LAB CHEMISTRY METHOD 12/22/2024 8:25 PM [facility] Comment:Specimens from patie nts taking pantoprazole sodium (Protonix) have been shown to produce false positive results. Fentanyl, Ur Negative Negative LAB CHEMISTRY METHOD 12/22/2024 8:25 PM [facility] Oxycodone Screen, Ur Negative Negative LAB CHEMISTRY METHOD 12/22/2024 8:25 PM [facility] Urine Urine specimen obtained by clean catch procedure / Unknown Non-blood Collection / Unknown 12/22/2024 12:22 PM EDT 12/22/2024 12:22 PM EDT Narrative [facility] - 12/22/2024 8:25 PM EDT Assay cutoffs: Amphetamines 1000 ng/mL Barbiturates 200 ng/mL Benzodiazepines 200 ng/mL Cocaine 300 ng/mL Fentanyl 1 ng/mL Opiates 300 ng/mL Oxycodone 100 ng/mL THC 50 ng/mL Semi-quantitative assay for screening purposes only. Unconfirmed screening result should not be used for non-medical purposes. *POSITIVE RESULTS ARE AUTOMATICALLY SENT FOR ALTERNATE METHOD CONFIRMATION* us Sofia Sims MD LAB URINE ORDERABLES Final Resul t Performing Organization Address [facility]/ZIP Co de Phone Number [facility] [address] [place] [address], [place] [phone] * (ABNORMAL) Lipid panel with reflex to direct LDL (10/11/2024 11:01 AM EDT) Cholesterol 195 0 - 200 mg/dL LAB CHEMISTRY METHOD 10/11/2024 5:08 PM EDT [facility] Triglycerides 193(H) 0 - 150 mg/dL LAB CHEMISTRY METHOD 10/11/2024 5:08 PM EDT [facility] HDL 56 >=40 mg/dL LAB CHE[facility]STRY METHOD [facility] LDL Calculated 100 0 - 100 mg/dL LAB CHEMISTRY METHOD 10/11/2024 5:08 PM EDT [facility] Comment:Estimated LDL Calcul ated using equation: Total cholesterol - HDL cholesterol - (Triglycerides/5) VLDL Cholesterol Cristofer 38.6 mg/dL LAB CHEMISTRY METHOD 10/11/2024 5:08 PM EDT [facility] Non HDL Chol. (LDL+VLDL) 139 <145 mg/dL LAB CHEMISTRY METHOD 10/11/2024 5:08 PM EDT [facility] Chol/HDL Ratio 3.5 0.0 - 4.4 LAB CHEMISTRY METHOD 10/11/2024 5:08 PM EDT [facility] Blood Venous blood specimen / Unknown Venipuncture / Unknown 10/11/2024 11:01 AM EDT 10/11/2024 11:01 AM EDT us Padmini GONSALVES LAB BLOOD ORDERABLES Final Re sult [facility] [address] [place] [address], [place] [phone] * Comprehensive metabolic panel (10/11/2024 11:01 AM EDT) Sodium 136 133 - 145 mmol/L LAB CHEMISTRY METHOD 10/11/2024 5:08 PM [facility] Potassium 3.8 3.5 - 5.5 mmol/L LAB CHEMISTRY METHOD 10/11/2024 5:08 PM [facility] Chloride 101 96 - 110 mmol/L LAB CHEMISTRY METHOD 10/11/2024 5:08 PM [facility] CO2 28 21 - 32 mmol/L LAB CHEMISTRY METHOD 10/11/2024 5:08 PM [facility] Anion Gap 7 3 - 11 LAB CHEMISTRY METHOD 10/11/2024 5:08 PM [facility] Glucose 83 70 - 100 mg/dL LAB CHEMISTRY METHOD 10/11/2024 5:08 PM [facility] BUN 15 5 - 25 mg/dL LAB CHEMISTRY METHOD 10/11/2024 5:08 PM [facility] Creatinine 0.71 0.50 - 1.10 mg/dL LAB CHEMISTRY METHOD 10/11/2024 5:08 PM [facility] eGFR 91 >=60 mL/min/1. 73m2 LAB CHEMISTRY METHOD 10/11/2024 5:08 PM [facility] Comment:Calculation based on the Chronic Kidney Disease Epidemiology Collaboration (CKD-EPI) equation refit without adjustment for race. BUN/Creatinine Ratio 21.1 LAB CHEMISTRY METHOD 10/11/2024 5:08 PM [facility] Calcium 9.2 8.5 - 10.5 mg/dL LAB CHEMISTRY METHOD 10/11/2024 5:08 PM [facility] AST (SGOT) 19 10 - 42 unit/L LAB CHEMISTRY METHOD 10/11/2024 5:08 PM [facility] ALT (SGPT) 32 10 - 60 unit/L LAB CHEMISTRY METHOD 10/11/2024 5:08 PM [facility] Alkaline Phosphatase 99 42 - 121 unit/L LAB CHEMISTRY METHOD 10/11/2024 5:08 PM EDT [facility] Total Protein 7.1 6.0 - 8.0 g/dL LAB CHEMISTRY METHOD 10/11/2024 5:08 PM EDT [facility] Albumin 3.9 3.2 - 5.0 g/dL LAB CHEMISTRY METHOD 10/11/2024 5:08 PM EDT [facility] Total Bilirubin 0.7 0.0 - 1.4 mg/dL LAB CHEMISTRY METHOD 10/11/2024 5:08 PM EDT [facility] Blood Venous blood specimen / Unknown Venipuncture / Unknown 10/11/2024 11:01 AM EDT 10/11/2024 11:01 AM EDT us Padmini GONSALVES LAB BLOOD ORDERABLES Final Re sult [facility] [address] [place] [address], [place] [phone] * MG Mammo Digital Screening w Skinny bilat (03/17/2024 11:12 AM EST) Anatomical Region Laterality Modality Breast Bilateral Mammography 03/17/2024 12:4 1 PM EST Impressions 03/17/2024 12:46 PM EST BILATERAL BREASTS: Negative, no evidence of malignancy. Normal interval follow- up is recommended in 12 months. BREAST DENSITY: B - There are scattered areas of fibroglandular density. BI-RADS CATEGORY: 1 - NEGATIVE RECOMMENDATION: Screening bilateral mammogram is recommended in 1 year. Mammo Location: [facility], [address] [place] [address], [id number], . -------- FINAL REPORT -------- Dictated By: Rafi Gonzales Dictated Date: 03/17/2024 12:41 ET Assigned Physician: Rafi Gonzales Reviewed and Electronically Signed By: Rafi Gonzales Signed Date: 03/17/2024 12:46 ET Workstation ID: [id number] Transcribed By: Self Edit Transcribed Date: 03/17/2024 12:41 ET Narrative 03/17/2024 12:46 PM EST STUDY: Bilateral screening mammography with tomosynthesis and CAD TECHNIQUE: Bilateral full-field digital screening mammography is obtained and read in conjunction with computer-aided detection. Tomosynthesis as well as 2-D C view imaging were obtained. COMPARISON: Comparison made to multiple prior, most recent March 05, 2023, and most remote June 22, 2014. BILATERAL BREASTS: No significant masses, suspicious calcifications or other abnormalities are seen in either breast. Procedure Note Rafi Gonzales MD - 03/17/2024 STUDY: Bilateral screening mammography with tomosynthesis and CAD TECHNIQUE: Bilateral full-field digital screening mammography is obtainedand read in conjunction with computer-aided detection. Tomosynthesis aswell as 2-D C view imaging were obtained. COMPARISON: Comparison made to multiple prior, most recent February, and most remote June 22, 2014. BILATERAL BREASTS: No significant masses, suspicious calcifications orother abnormalities are seen in either breast. IMPRESSION: BILATERAL BREASTS: Negative, no evidence of malignancy. Normal intervalfollow-up is recommended in 12 months. BREAST DENSITY: B - There are scattered areas of fibroglandular density. BI-RADS CATEGORY: 1 - NEGATIVE RECOMMENDATION: Screening bilateral mammogram is recommended in 1 year. Mammo Location: [facility], [address] [place] [address], [id number], . -------- FINAL REPORT -------- Dictated By: Rafi Gonzales Dictated Date: 03/17/2024 12:41 ET Assigned Physician: Rafi Gonzales Reviewed and Electronically Signed By: Rafi Gonzales Signed Date: 03/17/2024 12:46 ET Workstation ID: [id number] Transcribed By: Self Edit Transcribed Date: 03/17/2024 12:41 ET Sofia Sims MD IMG BI PROCEDURES Final Result * Depression Screening (10/08/2023) Pathologist [facility] Depression Screening Abstracted Historical Provider HEALTH MAINTENANCE Final Result * Falls Risk Assessment (07/08/2023) [facility] Falls Risk Assessment Abstracted [facility] Provider HEALTH MAINTENANCE Final Result * Colonoscopy (03/14/2022) [facility] Colonoscopy No interpreta tion,abstr acted Anatomical Region Laterality Modality Other Historical Provider HEALTH MAINTENANCE Final Result * DXA BONE DENSITY STUDY 1+ SITS AXIAL SKEL (02/06/2022 10:31 AM EST) Anatomical Region Laterality Modality Bone Densitometr y 05/01/2021 10:1 1 AM EST Narrative 02/06/2022 4:42 PM EST BONE DENSITY Lumbar Spine T-score is +1.8 (SD relative to 20-29 y/o adult) Z-score is +3.8 (SD relative to age matched peers) This is normal by criteria defined by the WHO. Left Hip T-score is -0.3 Z-score is +1.4 This is normal by criteria defined by the WHO. Comparison exam(s): no statistically significant change in the bone density of the hip and lumbar spine when compared to most recent bone density examination Confidence level is +/-95%. Impression: Based on the World Health Organization criteria, Ratna Rodriguez should be classified as having normal bone density. The [facility] Department of Internal Medicine recommends using National Osteoporosis Foundation (NOF) guidelines in treatment decisions related to osteoporosis. NOF guidelines suggest considering treatment for postmenopausal women and men aged 50 or older presenting with the following: History of hip or vertebral fracture. T-score less than or equal to -2.5 (DXA) at the femoral neck, total hip, or spine, after appropriate evaluation to exclude secondary causes. Low bone mass (T-score between -1.0 and -2.5 at the femoral neck or spine) AND a 10-year probability of a hip fracture greater than or equal to 3% OR a 10-year probability of a major osteoporosis-related fracture greater than or equal to 20% based on the [place]-adapted WHO algorithm Please note that all treatment decisions require clinical judgment and consideration of individual patient factors, including patient preferences, co-morbidities, previous drug use, risk factors not captured in the FRAX model (e.g., frailty, falls, vitamin D deficiency, increased bone turnover, interval significant decline in bone density) and possible under- or over-estimation of fracture risk by FRAX. Procedure Note Emily Gomez MD - 03/31/2023 BONE DENSITY Lumbar Spine T-score is +1.8 (SD relative to 20-29 y/o adult) Z-score is +3.8 (SD relative to age matched peers) This is normal by criteria defined by the WHO. Left Hip T-score is -0.3 Z-score is +1.4 This is normal by criteria defined by the WHO. Comparison exam(s): no statistically significant change in the bonedensity of the hip and lumbar spine when compared to most recent bonedensity examination Confidence level is +/-95%. Impression: Based on the World Health Organization criteria, Ratna Rodriguez should beclassified as having normal bone density. The [facility] Department of Internal Medicine recommendsusing National Osteoporosis Foundation (NOF) guidelines in treatmentdecisions related to osteoporosis. NOF guidelines suggest consideringtreatment for postmenopausal women and men aged 50 or older presentingwith the following: History of hip or vertebral fracture. T-score less than or equal to -2.5 (DXA) at the femoral neck, total hip,or spine, after appropriate evaluation to exclude secondary causes. Low bone mass (T-score between -1.0 and -2.5 at the femoral neck or spine)AND a 10-year probability of a hip fracture greater than or equal to 3% ORa 10-year probability of a major osteoporosis-related fracture greaterthan or equal to 20% based on the [place]-adapted WHO algorithm Please note that all treatment decisions require clinical judgment andconsideration of individual patient factors, including patientpreferences, co-morbidities, previous drug use, risk factors not capturedin the FRAX model (e.g., frailty, falls, vitamin D deficiency, increasedbone turnover, interval significant decline in bone density) and possibleunder- or over-estimation of fracture risk by FRAX. Padmini GONSALVES IMG DXA PROCEDURES Final Resu lt * Hepatitis C Screening (03/01/2017) [facility] Hepatitis C Screening Abstracted Historical Provider HEALTH MAINTENANCE Final Result from Last 3 Months or Most Recently Relevant to Health Maintenance Insurance MEDICARE [facility] Care Teams Yarn Examiner Skeins Relationship Specialty Start Date End Date Sofia Sims MD [address] [place] [address] PCP - General 10/08/1992
--- OUTSIDE RECORDS SUMMARY | 2025-02-01 02:25 | XMS_ITS | Encounter Summary ---
Author Organization [facility] and [facility] Address [address] [place] [address] Care Team Providers Care Vp Genetic Name Role Phone Sofia Sims MD Primary Care Provider [phone] Reason for Referral * Imaging (Routine) - Closed Specialty Diagnoses / Procedures Referred By Contac t Referred To Contact Diagnostic Radiology Procedures CT Lumbar Spine wo IV Contrast Spine Center at [address] [facility] [address] [facility] [address]th [place] [address] Phone: tel: fax: Referral ID Status Reason Start Date Expiration Date Visits Re quested Visits Authorized [id number] Closed 04/22/2022 04/22/2023 1 1 Encounter Details Date Type Department Care Team (Late Contact Info) Description 04/22/2022 Scanned Document Sp[facility] at 1 [facility] 1 [facility] [address] [place] [address] ProviderGarry . Social History Tobacco Use Types Packs/Day [...] PM EST Office Visit [facility] at [address] [place] [phone] Segundo Puente MD [address] [place] [phone] Mandi Argelia MEDICAL SCHEDULER 8 [facility] [place] [phone] 03/02/2025 11:15 AM EST Follow Up [facility] at [address] [place] [address] Segundo Puente MD [address] [place] [phone] documented as of this encounter Procedures Procedure Name Priority Date/Time Associated Diagnosis Comments CT RESULT SCAN Routine 04/22/2022 CT LUMBAR SPINE WO IV CONTRAST Routine 04/22/2022 documented in this encounter Results * CT Result Scan (04/22/2022) us Historical Provider IMG SCAN REPORTS Final Resul t * CT Lumbar Spine wo IV Contrast (04/22/2022) Anatomical Region Laterality Modality L-spine, Spine, Ortho L-spine Co mputed Tomography us Historical Provider IMG CT ORDERABLES Final Resu lt documented in this encounter Visit Diagnoses Not on filedocumented in this encounter Care Teams Vp Genetic Relationship Specialty Start Date End Date Sofia Sims MD PCP - General Internal Medicine 05/28/22 documented as of this encounter
--- OUTSIDE RECORDS SUMMARY | 2025-02-01 02:25 | XMS_ITS | Encounter Summary ---
Author Organization [facility] and [facility] Address [address] [place] [address] Care Team Providers Care Solution Lead Name Role Phone Sofia Sims MD Primary Care Provider [phone] Reason for Visit * Reason Comments Other Encounter Details Date Type Department Care Team (Late st Contact Info) Description 04/08/2022 Telephone Spine Center at [address] 6[address] [place] [address] Valeria Motley, [employer]AG TRUCK DRIVER [address] [place] [phone] Other Social History Tobacco Use Types Packs/Day Years Used Date Smoking Tobacco: Never Comments Unknown Sex and Gender Information Value Date Recorded Sex Assigned at Not on file Legal Sex Female 8:01 AM EST Gender Identity Not on file Sexual Orientation Not on file documented as of this encounter Miscellaneous Notes * Telephone Encounter - Silva Rubi - 04/09/2022 11:40 AM EST Referral faxed * Telephone Encounter - Jessica Mcallister - 04/08/2022 11:23 AM EST [facility] MESSAGE Time of call: 11:24 AM Caller: ratna Caller's relationship to patient: Calling from} Reason for call: Pt would like order for CT to be sent to [facility] fax number [phone] Best telephone number for callback: [phone] Best time to return call: Permission to leave message: Jessica Mcallister documented in this encounter Plan of Treatment Upcoming Encounters Date Type Department Care Team (Late st Contact Info) Description 02/28/2025 1:00 PM EST Office Visit [facility] at [address] [place] [phone] Segundo Puente MD [address] [place] [phone] Argelia Raymond APRN [address] [place] [phone] 03/02/2025 11:15 AM EST Follow Up [facility] at [address] [place] [phone] Segundo Puente MD [address] [place] [phone] documented as of this encounter Visit Diagnoses Not on filedocumented in this encounter Care Teams Solution Lead Relationship Specialty Start Date End Date Sofia Sims MD PCP - General Internal Medicine 05/28/22 documented as of this encounter
--- OUTSIDE RECORDS SUMMARY | 2025-02-01 02:25 | XMS_ITS | Encounter Summary ---
Author Organization [facility] and [facility] Address [address] [place] [address] Care Team Providers Care Hvac Controls Technician Name Role Phone Sofia Sims MD Primary Care Provider [phone] Reason for Visit * Reason Comments Letter for School/Work Encounter Details Date Type Department Care Team ([facility] st Contact Info) Description 02/06/2023 Telephone Orth[facility]ics & Rehabilitation at [address] [place] [address] Dg Renee MD [address] [place] [address] Letter for School/Work Social History Tobacco Use Types Packs/Day Years Used Date Smoking Tobacco: Never Alcohol Use Standard Drinks/Week Comments Yes 0 (1 standard drink = 0.6 oz pur e alcohol) 1 drink once or twice a month Overall Financial Resource Strain (CARDIA) Answe r Date Recorded How hard is it for you to pa y for the very basics like food, housing, medical care, and heating? Not hard at all 09/02/2022 PHQ-2 Answer Date Recorded PHQ-2 Total Score 0 09/02/2022 Hunger Vital Sign Answer Date Recorded Within [...] living situation today? I have a [facility] place to live 09/02/2022 Housing Stability Not on file 09/02/2022 Interpersonal Safety Answer Date Record ed Is there anyone in your life that is hurting or threatening you in anyway? Not on file 09/02/2022 Physical Indicators of Abuse No evidence of phys ical abuse 09/02/2022 Comments Unknown Sex and Gender Information Value Date Recorded Sex Assigned at Not on file Legal Sex Female 8:01 AM EST Gender Identity Not on file Sexual Orientation Not on file documented as of this encounter Miscellaneous Notes * Telephone Encounter - Colleen Palencia RN - 02/06/2023 11:25 AM EST Called patient and advised unable to excuse from Jury duty as surgery was in August. * Telephone Encounter - Nancy Silver - 02/06/2023 9:01 AM EST Patient requesting a disability letter for Jury Duties. Patient said she not able to walk long distance and sit to long. Patient can be reach at [phone] to discuss letter and her restriction documented in this encounter Plan of Treatment Upcoming Encounters Date Type Department Care Team (Late st Contact Info) Description 02/28/2025 1:00 PM EST [facility] Visit [facility] [address] [place] [phone] Segundo Puente MD [address] [phone] Argelia Raymond APRN [address] [place] [phone] 03/02/2025 11:15 AM EST [facility] at [address] [place] [address] Segundo Puente MD [address] [place] [phone] documented as of this encounter Visit Diagnoses Not on filedocumented in this encounter Additional Health Concerns Assessment Noted Time PHQ-9 Depression Total Score: 0 09/03/19 23 5:21 PM EDT documented as of this encounter Care Teams Hvac Controls Technician Relationship Specialty Start Date End Date Sofia Sims MD PCP - General Internal Medicine 05/28/22 documented as of this encounter
--- OUTSIDE RECORDS SUMMARY | 2025-02-01 02:25 | XMS_ITS | Encounter Summary ---
Author Organization [facility] and [facility] Address [address] [place] [address] Care Team Providers Care Scientific Affairs Manager Name Role Phone Sofia Sims MD Primary Care Provider [phone] Reason for Visit * Reason Comments Results Encounter Details Date Type Department Care Team (Late Contact Info) Description 04/22/2022 Telephone Sp[facility] at [address] 6[address] [place] [address] Valeria Motley, PROFESSOR OF ART [address] [place] [phone] Results Social History Tobacco Use Types Packs/Day Years Used Date Smoking Tobacco: Never Comments Unknown Sex and Gender Information Value Date Recorded Sex Assigned at Not on file Legal Sex Female 8:01 AM EST Gender Identity Not on file Sexual Orientation Not on file documented as of this encounter Miscellaneous Notes * Telephone Encounter - Gely Kidd - 04/22/2022 12:20 PM EST Pt called in asking if Valeria had a chance to review her CT results? Also she is not sure if she needs to schedule an appointment or not. Please advise Ms. Lantigua's Number: [phone] documented in this encounter Plan of Treatment Upcoming Encounters Date Type Department Care Team (Late Contact Info) Description 02/28/2025 1:00 PM EST Office Visit [facility] at [address] [place] [address], [place] [phone] Segundo Puente MD [address] [place] [phone] Raymond Argelia DIRECTOR OF COMMUNICATIONS [address] [place] [address], [place] [phone] 03/02/2025 11:15 AM EST Follow Up [facility] at [address] [place] [phone] Segundo Puente MD [address] [place] [phone] documented as of this encounter Visit Diagnoses Not on filedocumented in this encounter Care Teams Scientific Affairs Manager Relationship Specialty Start Date End Date Sofia Sims MD PCP - General Internal Medicine 05/28/22 documented as of this encounter
== END 2025-01-31 20:47 | disposition home or self-care (01) ==
PROVIDERS: Emergency Provider Emergency Medicine; PCP Internal Medicine
DX: R55 Syncope and collapse (principal); R00.2 Palpitations
CPT/HCPCS: 36415; 80053; 82947; 83735; 84484; 85025; 93005; 96360; 96361; 99284; 99285

== ENCOUNTER → 2025-01-31 16:56 | Outpatient (BNV) | payer MEDICARE, OTHER, SELFPAY | PROVIDERS: Emergency Provider Emergency Medicine; PCP Internal Medicine; Visit Provider Internal Medicine Cardiovascular Disease | DX: R00.1 Bradycardia, unspecified (principal) | CPT/HCPCS: 93010 ==